=== PATIENT | male | born 1945 | race Caucasian/White ===

== ENCOUNTER 2016-12-07 02:28 | Inpatient (IN) | payer MEDICARE ==
[~2016-12-07] VITALS: Ht 180.3 cm; Wt 97.5 kg
[2016-12-07] VITALS (12 sets, daily range): BP systolic 104–192; BP diastolic 58–91; PULSE 77–105; RESP 16–22; TEMP 97.3–98.9; O2SAT 93–99
[~2016-12-07 02:28] MED LIST: ASPI81TA45 PO; CEPH500C3 PO; CYAN1000P IM; DOCU50SY2 PO; ENOX100P SQ; HYDR-3533 PO; KONS520C PO; LOSA50TA PO; MACR100C PO; OMEP20TA PO; SINE10100 PO; TAMS0.4C67 PO; TOPR50TA PO; VITA500C PO; WARF-20 PO; WARF-60 PO; ZOCO40TA PO
--- NOTE | 2016-12-07 02:38 | PD ---
HPI Chief Complaint: Fall Time Seen by Provider: 02:35 Travel History International Travel<30 days: No Contact w/Intl Traveler<30days: No Traveled to known affect area: No History of Present Illness HPI 70-year-old male presents to the ER today, had tripped and fell on his way to the bathroom, fell onto the right hip and has significant pain in the right hip with obvious deformity and shortening of the right limb. He denies any head injury or loss of consciousness or any other injuries. Modifying Factors: None Associated Signs & Symptoms: Right hip injury, fall Risk Factors: None PFSH Past Medical History Hx Anticoagulant Therapy: Yes (WARFAIN) Arthritis: No Asthma: Yes Autoimmune Disease: No Blood Disorders: No Anxiety: No Depression: No Heart Rhythm Problems: Yes (PERM. PACEMAKER FOR :"SINUS TACYACARDIA") Cancer: Yes (CLL) Cardiac Catheterization: Yes Cardiovascular Problems: Yes High Cholesterol: Yes Chemotherapy: Yes (02/2016) Chest Pain: No Congestive Heart Failure: No COPD: Yes Cerebrovascular Accident: Yes Diabetes: No Diminished Hearing: Yes (L EAR HEARING DIMINISHED) Endocrine: No Gastrointestinal Disorders: Yes GERD: Yes Glaucoma: No Genitourinary: Yes (KIDNEY STONES) Headaches: No Hepatitis: No Hiatal Hernia: Yes (ESOPH. STRICTURE) Hypertension: Yes Immune Disorder: No Implanted Vascular Access Dvce: Yes Kidney Stones: Yes Musculoskeletal: Yes (kyphosis) Neurologic: No Psychiatric: Yes Reproductive: No Respiratory: Yes (chronic bronchitits) Immunizations Current: Yes Migraines: Yes Myocardial Infarction: No Radiation Therapy: No Renal Failure: No Seizures: No Sickle Cell Disease: No Sleep Apnea: No Thyroid Disease: Yes (CURRENT MASS) Ulcer: No Past Surgical History Abdominal Surgery: Yes (HERNIA REPAIR) AICD: No Appendectomy: No Arteriovenous Shunt: No Cardiac Surgery: Yes (AVR X2, MYOECTOMY, PACEMAKER ([facility])) Cholecystectomy: No Coronary Artery Bypass Graft: Yes (AVR 2005 & 2009) Ear Surgery: No Endocrine Surgery: No Eye Surgery: Yes (LASER SURGERY BILAT. EYES FOR TORN RETINAS 1997 AND 2004) Genitourinary Surgery: Yes (MULTI. ESWL'S, LITHOTRIPSY, RENAL ABLATION) Gynecologic Surgery: No Insulin Pump: No Joint Replacement: No Oral Surgery: No Pacemaker: Yes (1998) Thoracic Surgery: No Other Surgery: Yes (PERM. PACEMAKER 1998) Social History Alcohol Use: Yes (RARE WINE) Tobacco Use: No (NEVER SMOKED) Substance Use: No Allergies-Medications (Allergen,Severity, Reaction): Coded Allergies: Hctz (Verified Allergy, Severe, RASH, THROAT CLOSES UP, 12/07/16) Sulfa (Verified Allergy, Intermediate, rash, 12/07/16) Valium (Verified Allergy, Intermediate, BECOMES VERY HYPER, 12/07/16) Allopurinol (Verified Allergy, Mild, Rash, 12/07/16) MRI PRECAUTION (Verified Adverse Reaction, Severe, PACEMAKER, 12/07/16) Plavix (Verified Adverse Reaction, Mild, BRUISES, 12/07/16) Prinivil (Verified Adverse Reaction, Mild, COUGH, 12/07/16) Reported Meds & Prescriptions Reported Meds & Active Scripts Active Reported Sucralfate 1 Gm Tab 1 Gm PO TID PRN on empty stomach Sucralfate 1 Gm Tab 1 Mg PO TID on empty stomach Neupogen Inj (Filgrastim) 300 Mcg/Ml Vial 300 Mcg SQ WEEKLY Losartan (Losartan Potassium) 50 Mg Tab 50 Mg PO DAILY Warfarin 4 Mg Tab 4 Mg PO DAILY Vitamin C (Ascorbic Acid) 250 Mg Tab 500 Mg PO DAILY Vitamin B12 (Cyanocobalamin (Vitamin B-12)) 2,500 Mcg Tab.chew 3,000 Mcg SL DAILY Toprol XL (Metoprolol Succinate) 100 Mg Tab 100 Mg PO DAILY Tamsulosin (Tamsulosin HCl) 0.4 Mg Cap 0.4 Mg PO HS Sinemet (Carbidopa/Levodopa) 10-100 Mg Tab 0.5 Tab PO Q8HR Simvastatin 20 Mg Tab 20 Mg PO HS Proventil Hfa 6.7 GM Inh (Albuterol Sulfate) 90 Mcg/Act Aer 2 Puff INH Q4-6H PRN Procrit Inj (Epoetin Glynn) 2,000 Unit/Ml Inj 2,000 Units SQ 2XWEEK Pantoprazole (Pantoprazole Sodium) 40 Mg Tab 40 Mg PO DAILY Review of Systems Except as stated in HPI: all other systems reviewed are Neg Physical Exam Narrative GENERAL: Well-developed elderly white male patient currently in moderate distress. Awake and oriented 3. SKIN: Focused skin assessment warm/dry. HEAD: Atraumatic. Normocephalic. EYES: Pupils equal and round. No scleral icterus. No injection or drainage. ENT: No nasal bleeding or discharge. Mucous membranes pink and moist. NECK: Trachea midline. No JVD. CARDIOVASCULAR: Irregularly irregular. No murmur appreciated. RESPIRATORY: No accessory muscle use. Clear to auscultation. Breath sounds equal bilaterally. GASTROINTESTINAL: Abdomen soft, non-tender, nondistended. Hepatic and splenic margins not palpable. MUSCULOSKELETAL: No obvious deformities. No clubbing. No cyanosis. No edema. Pelvis: Stable, tender to palpation of the right hip which is tender palpation, held in slight flexion and early rotated. Neurovascularly intact. NEUROLOGICAL: Awake and alert. No obvious cranial nerve deficits. Motor grossly within normal limits. Normal speech. PSYCHIATRIC: Appropriate mood and affect; insight and judgment normal. Data Data Last Documented VS Vital Signs Date Time Temp Pulse Resp B/P Pulse Ox O2 Delivery O2 Flow Rate FiO2 12/07/16 02:48 22 94 Room Air 12/07/16 02:32 98.2 77 192/91 Orders Complete Blood Count With Diff (12/07/16 02:35) Comprehensive Metabolic Panel (12/07/16 02:35) Prothrombin Time / Inr (Pt) (12/07/16 02:35) Act Partial Throm Time (Ptt) (12/07/16 02:35) Urinalysis - C+S If Indicated (12/07/16 02:35) Chest, Single Ap (12/07/16 02:35) Femur (Ap & Lat/2vws) (12/07/16 02:35) Hip, Uni(Ap&Lat) W Ap Pelvis (12/07/16 02:35) Iv Access Insert/Monitor (12/07/16 02:35) Oximetry (12/07/16 02:35) Ecg Monitoring (12/07/16 02:35) Sodium Chloride 0.9% Flush (Ns Flush) (12/07/16 02:45) Admit Order (Ed Use Only) (12/07/16 04:21) Labs Laboratory Tests Test 12/07/16 02:40 White Blood Count 3.4 TH/MM3 Red Blood Count 3.45 MIL/MM3 Hemoglobin 11.8 GM/DL Hematocrit 34.8 % Mean Corpuscular Volume 100.7 FL Mean Corpuscular Hemoglobin 34.1 PG Mean Corpuscular Hemoglobin 33.8 % Concent Red Cell Distribution Width 16.2 % Platelet Count 79 TH/MM3 Mean Platelet Volume 9.8 FL Neutrophils (%) (Auto) 54.5 % Lymphocytes (%) (Auto) 26.7 % Monocytes (%) (Auto) 16.1 % Eosinophils (%) (Auto) 2.0 % Basophils (%) (Auto) 0.7 % Neutrophils # (Auto) 1.9 TH/MM3 Lymphocytes # (Auto) 0.9 TH/MM3 Monocytes # (Auto) 0.6 TH/MM3 Eosinophils # (Auto) 0.1 TH/MM3 Basophils # (Auto) 0.0 TH/MM3 CBC Comment DIFF FINAL Differential Comment Prothrombin Time 23.9 SEC Prothromb Time International 2.1 RATIO Ratio Activated Partial 27.3 SEC Thromboplast Time Sodium Level 145 MEQ/L Potassium Level 3.5 MEQ/L Chloride Level 112 MEQ/L Carbon Dioxide Level 27.0 MEQ/L Anion Gap 6 MEQ/L Blood Urea Nitrogen 16 MG/DL Creatinine 1.02 MG/DL Estimat Glomerular Filtration 72 ML/MIN Rate Random Glucose 98 MG/DL Calcium Level 8.1 MG/DL Total Bilirubin 1.1 MG/DL Aspartate Amino Transf 16 U/L (AST/SGOT) Alanine Aminotransferase 12 U/L (ALT/SGPT) Alkaline Phosphatase 81 U/L Total Protein 6.4 GM/DL Albumin 3.7 GM/DL MDM Medical Decision Making Medical Screen Exam Complete: Yes Emergency Medical Condition: Yes Medical Record Reviewed: Yes Interpretation(s) Laboratory Tests Test 12/07/16 02:40 White Blood Count 3.4 TH/MM3 (4.0-11.0) Red Blood Count 3.45 MIL/MM3 (4.50-5.90) Hemoglobin 11.8 GM/DL (13.0-17.0) Hematocrit 34.8 % (39.0-51.0) Mean Corpuscular Volume 100.7 FL (80.0-100.0) Mean Corpuscular Hemoglobin 34.1 PG (27.0-34.0) Platelet Count 79 TH/MM3 (150-450) Monocytes (%) (Auto) 16.1 % (0.0-8.0) Lymphocytes # (Auto) 0.9 TH/MM3 (1.0-4.8) Prothrombin Time 23.9 SEC (9.8-11.6) Chloride Level 112 MEQ/L (98-107) Estimat Glomerular Filtration 72 ML/MIN (>89) Rate Calcium Level 8.1 MG/DL (8.5-10.1) Total Bilirubin 1.1 MG/DL (0.2-1.0) Differential Diagnosis Fall, right hip injuryrule out fracture versus dislocation Narrative Course X-rays reveal a right nondisplaced intertrochanteric fracture. At this point, patient is discussed with [facility] MARY Osborne for admission and orthopedics is consult on the case. We made several attempts to call Dr. Dunn of orthopedics for consult on this case but was unsuccessful. Consult was placed for the morning. Diagnosis Primary Impression: Fracture, intertrochanteric, right femur Admitting Information Admitting Physician Requests: Admit Karely Awad MD Dec 07, 2016 02:38
[2016-12-07] MEDS ORDERED: SODIUM CHLORIDE 0.9% FLUSH 10 ML FLUSH IVF PRN (02:45)
[2016-12-07 02:49] LABS: AUTOMATED NEUTROPHIL # 1.9 TH/MM3 (1.8-7.7); BASOPHIL % 0.7 % (0.0-2.0); EOSINOPHIL # 0.1 TH/MM3 (0-0.4); HEMATOCRIT 34.8 % (39.0-51.0); LYMPH % 26.7 % (9.0-44.0); LYMPHOCYTE # 0.9 TH/MM3 (1.0-4.8); MEAN CELL VOLUME 100.7 FL (80.0-100.0); MEAN CORPUSCULAR HEMOGLOBIN 34.1 PG (27.0-34.0); MEAN CORPUSCULAR HGB CONC 33.8 % (32.0-36.0); MONO % 16.1 % (0.0-8.0); NEUT % 54.5 % (16.0-70.0); PLATELET COUNT 79 TH/MM3 (150-450); RED BLOOD COUNT 3.45 MIL/MM3 (4.50-5.90); RED CELL DISTRIBUTION WIDTH 16.2 % (11.6-17.2); WHITE BLOOD COUNT 3.4 TH/MM3 (4.0-11.0)
[2016-12-07 02:54] LABS: HEMO FLAGS DIFF FINAL
[2016-12-07] MEDS ORDERED: [UNRECOGNIZED DRUG - CODE] SQ (02:59)
[2016-12-07] MEDS ORDERED: SIMV20TA PO (02:59)
[2016-12-07] MEDS ORDERED: PANT40TA3 PO (02:59)
[2016-12-07] MEDS ORDERED: TAMS0.4C4 PO (02:59)
[2016-12-07] MEDS ORDERED: SINE10100 PO (02:59)
[2016-12-07] MEDS ORDERED: ALBU6.7H INH (02:59)
[2016-12-07] MEDS ORDERED: WARF-20 PO (03:00)
[2016-12-07] MEDS ORDERED: SUCR1TAB PO ×2 (03:00)
[2016-12-07] MEDS ORDERED: TOPR100T PO (03:00)
[2016-12-07] MEDS ORDERED: LOSA50TA PO (03:00)
[2016-12-07] MEDS ORDERED: VITA250T3 PO (03:00)
[2016-12-07] MEDS ORDERED: CYAN25005 SL (03:00)
[2016-12-07] MEDS ORDERED: [UNRECOGNIZED DRUG - CODE] SQ (03:00)
[2016-12-07 03:03] LABS: APTT (PATIENT) 27.3 SEC (24.3-30.1); INTERNATIONAL NORMALIZED RATIO 2.1 RATIO; PROTHROMBIN TIME - PATIENT 23.9 SEC (9.8-11.6)
[2016-12-07 03:14] LABS: ALT (GPT) 12 U/L (12-78); ANION GAP 6 MEQ/L (5-15); AST (GOT) 16 U/L (15-37); BLOOD UREA NITROGEN 16 MG/DL (7-18); CHLORIDE 112 MEQ/L (98-107); GLOMERULAR FILTRATION RATE 72 ML/MIN (>89); POTASSIUM 3.5 MEQ/L (3.5-5.1); SODIUM (NA) 145 MEQ/L (136-145)
[2016-12-07 03:17] LABS: ALKALINE PHOSPHATASE 81 U/L (45-117); TOTAL BILIRUBIN ADULT 1.1 MG/DL (0.2-1.0)
--- NOTE | 2016-12-07 03:20 | RADRPT ---
EXAM DATE/TIME: 12/07/2016 02:52 [facility] COMPARISON: No previous studies available for comparison. INDICATIONS : Chest pain post fall. MEDICAL HISTORY : None. SURGICAL HISTORY : Pacemaker. ENCOUNTER: Initial ACUITY: 1 day PAIN SCORE: 2/10 LOCATION: Bilateral chest FINDINGS: A single view of the chest demonstrates the lungs to be symmetrically aerated without evidence of mas s, infiltrate or effusion. The cardiomediastinal contours are unremarkable. Osseous structures are intact. Left subclavian pacemaker and multiple sternal wires are stable CONCLUSION: Normal examination. Edy Cano MD on December 07, 2016 at 3:18 Board Certified Radiologist. This report was verified electronically.
--- NOTE | 2016-12-07 03:21 | RADRPT ---
EXAM DATE/TIME: 12/07/2016 02:53 [facility] COMPARISON: No previous studies available for comparison. INDICATIONS : Right proximal femur pain post fall. MEDICAL HISTORY : None. SURGICAL HISTORY : Pacemaker. ENCOUNTER: Initial ACUITY: 1 day PAIN SCORE: 7/10 LOCATION: Right proximal femur FINDINGS: Two view examination of the right femur demonstrates no evidence of dislocation. Oblique nondisplaced intertrochanteric fracture Bony mineralization is normal. The soft tissue structures are intact. CONCLUSION: Low intertrochanteric fracture on the right. Edy Cano MD on December 07, 2016 at 3:19 Board Certified Radiologist. This report was verified electronically.
--- NOTE | 2016-12-07 03:22 | RADRPT ---
EXAM DATE/TIME: 12/07/2016 02:53 [facility] COMPARISON: No previous studies available for comparison. INDICATIONS : Right hip pain post fall. MEDICAL HISTORY : None. SURGICAL HISTORY : Pacemaker. ENCOUNTER: Initial ACUITY: 1 day PAIN SCORE: 7/10 LOCATION: Right pelvis FINDINGS: Examination of the right hip was performed with AP Pelvis. There is a nondisplaced oblique fracture t hrough the greater intertrochanteric region. The hip joint is of normal width without significant sc lerosis or bony hypertrophy. The acetabulum is grossly intact. CONCLUSION: Oblique nondisplaced fracture of the trochanter region of the right hip. Edy Cano MD on December 07, 2016 at 3:20 Board Certified Radiologist. This report was verified electronically.
[2016-12-07] MEDS: SODIUM CHLOR 0.9% 1000 ML INJ 1,000 ML IV SCH ×2 (04:27→05:21)
[2016-12-07] MEDS ORDERED: SENNOSIDES 8.6 MG TAB PO PRN ×2 (04:30→13:45)
[2016-12-07] MEDS ORDERED: SODIUM CHLORIDE 0.9% FLUSH 10 ML FLUSH IV FLUSH PRN ×2 (04:30→13:45)
[2016-12-07] MEDS ORDERED: ONDANSETRON HCL 4 MG/2 ML VIAL IVP PRN ×2 (04:30→13:45)
[2016-12-07] MEDS ORDERED: ACETAMINOPHEN 325 MG TAB PO PRN ×2 (04:30)
[2016-12-07] MEDS ORDERED: NALOXONE HCL 0.4 MG/ML AMP IV PRN (04:30)
[2016-12-07] MEDS: MORPHINE SULFATE 4 MG/ML INJ IV PRN ×4 (05:29→20:20)
[2016-12-07] MEDS: DOCUSATE SODIUM 50 MG/SENNA 8.6 MG TAB PO SCH ×2 (08:32→20:21)
[2016-12-07] MEDS: SODIUM CHLORIDE 0.9% FLUSH 10 ML FLUSH IV FLUSH SCH ×2 (08:32→20:21)
[2016-12-07] MEDS ORDERED: DEXT 5%-NACL 0.9% 1000 ML INJ 1,000 ML IV SCH ×2 (09:15→13:00)
--- NOTE | 2016-12-07 09:41 | MH ---
cc: JENNY FARRIS MD DATE OF ADMISSION: 12/07/2016 DATE OF : 1945 CHIEF COMPLAINT: Fall. Travel in the last 30 days, none. HISTORY OF PRESENT ILLNESS: This is a pleasant 70 year-old white male who got up to go to the bathroom last night approximately 1:30 a.m., misjudged where his bed was when attempting to get back into the bed and fell hitting his right hip. He states he heard the crack and had extreme pain immediately. The patient lives with his son who he called out to and was brought to the emergency room for further evaluation. He denies hitting his head. He denies any headache. Denies any chest pain. No shortness of breath. He does have a significant history of cardiovascular disease and cardiomyopathy, and currently has a pacemaker. PAST MEDICAL HISTORY: 1. Coumadin therapy. 2. Chronic bronchitis. 3. Asthma. 4. Cancer (CLL). Chemotherapy has been done x1. 5. Multiple cardiac catheterizations. 6. Hyperlipidemia. 7. COPD. 8. History of CVA. 9. Loss of hearing in the left ear. 10. GERD. 11. Kidney stones 12. Esophageal stricture. 13. Hypertension. 14. Kyphosis. 15. Chronic bronchitis. 16. History of migraines. 17. Current thyroid mass. 18. Cardiomyopathy 19. Renal cancer diagnosed in 2014. PAST SURGICAL HISTORY: 1. Hiatal hernia. 2. Aortic valve replacement x2. 3. Pacemaker at [facility]. 4. Myomectomy. 5. Bypass 2005 and 2009. 6. Laser surgery on his eyes. 7. Torn retina. 8. Lithotripsy. 9. Renal ablation. 10. Multiple ESWL. 11. Pacemaker in 1998. 12. Chemotherapy after CLL diagnosis. ALLERGIES: ALLOPURINOL HYDROCHLOROTHIAZIDE MRI PRECAUTIONS PLAVIX PRINIVIL SULFA VALIUM REPORTED MEDICATIONS: 1. Carafate. 2. Filgrastim. 3. Losartan. 4. Coumadin 5. Vitamin C. 6. Vitamin B12. 7. Sinemet. 8. Simvastatin 9. Proventil 10. Procrit 11. Pantoprazole. SOCIAL HISTORY: Very rare wine consumption. No tobacco. No illicit drug use. He is and currently lives with his son and his family. REVIEW OF SYSTEMS: A 14 point review was obtained, positives noted in the HPI which are chiefly around his falls and his right hip fracture. Other systems negative or unremarkable. PHYSICAL EXAMINATION: VITAL SIGNS: Temperature is 98.2, pulse labile between 77 and 97. Respiratory rate labile between 16 and 21, currently 18. Blood pressure 173/83. O2 sat 99% currently on room air. GENERAL: Well-nourished white male, looks to be younger than stated age resting in bed. He is alert, oriented, good historian. SKIN: [place], warm and dry. HEENT: Atraumatic, normocephalic. PERRLA. Mucous membranes are pink and moist. No scleral icterus. NECK: Supple. CARDIOVASCULAR: S1-S2. Systolic murmur. Grade 4/6 at the left sternal border. No edema. Pulses intact. PULMONARY: Essentially clear anteriorly and posteriorly with no rales, rhonchi or wheezing. ABDOMEN: Flat, soft, non-tender, non-distended. Active bowel sounds. MUSCULOSKELETAL: He can move his extremities with purpose but there is some guarding to the right leg and right hip secondary to his recent fracture. 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 NEUROLOGIC: Speech is clear. No obvious cranial nerve deficits. PSYCHIATRIC: Mood and affect are appropriate. DIAGNOSTIC DATA WBC count 3.4, RBC 3.45, hemoglobin 11.8, hematocrit 34.8, platelet count 79. Monocyte percentage auto 16.1. All other dif is normal. PT/INR 2.1. Chemistry: Sodium 145, potassium 3.5, chloride 112, carbon dioxide 27, BUN 16, creatinine 1.02, GFR 72. Random glucose is 98, calcium is 8.1, bilirubin 1.1. IMAGING STUDIES: Chest x-ray, normal exam. Femur x-ray, low intertrochanteric fracture right side. Hip/pelvis x-ray, oblique nondisplaced fracture of the trochanter region of the right hip. ASSESSMENT AND PLAN: 1. Oblique nondisplaced fracture of the trochanter region of the right hip. 2. Thrombocytopenia. 3. History of coronary artery disease. 4. History of TIAs. 5. History of aortic valve replacement. 6. Anemia. 7. Leukopenia with history of cardiovascular disease. 8. Coumadin therapy. 9. History of CLL. Our plan is to maintain n.p.o. The patient has an ortho consult that is pending. Will follow the plan of care based on the course of action with this hospital stay. Vital signs: Q4 and is warranted. Will monitor his labs. He is admitted inpatient status. Currently he is on bed rest. Medications have been reconciled. Will keep him on IV fluids for hydration, D5 NS. Monitor for any signs of shortness of breath or change in his pulmonary status. The patient is seen to be leukopenic but does have a history of CLL with chemotherapy that has been done in 2015. Will monitor his CBC, and note any acute changes. Will place him on telemetry. The patient has had sinus rhythm with some possible atrial fibrillation in the past. Will hold on any vitamin K until seen by ortho. I discussed in detail patient's wishes for his code status. He does have a living will but has not discussed with his family any of his wishes. He states that he does not think he wants to be intubated if anything acute happens to him, but I requested that he speak to his family and think about his wishes before we make any quick decisions. The patient agreed with that plan. If anything changes, he will let us know. Dictated by: AMY Owen MD MACKENZIE Mohr/ZAINAB /8:52 AM /9:06 AM
[2016-12-07] MEDS ORDERED: PERC5TAB12 PO (13:34)
[2016-12-07] MEDS ORDERED: PROMETHAZINE HCL 25 MG TAB PO PRN (13:45)
[2016-12-07] MEDS ORDERED: ENOXAPARIN SODIUM 30 MG/0.3 ML SYRINGE SQ SCH (13:45)
[2016-12-07] MEDS ORDERED: BISACODYL 10 MG SUPP RECTAL PRN (13:45)
[2016-12-07] MEDS ORDERED: oxyCODONE/ACETAMINOPHEN 5 MG/325 MG TAB PO PRN ×2 (13:45)
[2016-12-07] MEDS ORDERED: LACTULOSE SYRUP 20 GM/30 ML CUP PO PRN (13:45)
[2016-12-07] MEDS ORDERED: ZOLPIDEM TARTRATE 5 MG TAB PO PRN (13:45)
[2016-12-07] MEDS ORDERED: MAGNESIUM HYDROXIDE SUSP 30 ML CUP PO PRN (13:45)
[2016-12-07] MEDS ORDERED: Post-op Orders (for Pharmacy) MISC XX ONE (13:45)
[2016-12-07] MEDS ORDERED: KETOROLAC TROMETHAMINE 30 MG/ML (IVP) VIAL IVP SCH (14:00)
--- NOTE | 2016-12-07 14:43 | HHI.PR ---
Objective Objective Results - Vital Signs Date Time Temp Pulse Resp B/P Pulse Ox O2 Delivery O2 Flow Rate FiO2 12/07/16 12:00 98.0 91 18 115/67 95 12/07/16 08:00 98.9 105 18 142/75 94 12/07/16 05:34 18 12/07/16 05:10 98.3 97 20 173/83 99 12/07/16 04:42 95 16 171/81 98 12/07/16 02:48 22 94 Room Air 12/07/16 02:48 Room Air 12/07/16 02:32 98.2 77 21 192/91 94 I/O 12/06/16 12/06/16 12/06/16 12/07/16 12/07/16 12/07/16 06:59 14:59 22:59 06:59 14:59 22:59 Intake Total 0 ml 582 ml Output Total 300 ml Balance -300 ml 582 ml Intake Oral 0 ml IV Total 582 ml Output Urine Total 300 ml Result Diagram: 12/07/16 0240 12/07/16 0240 Other Results Laboratory Tests Test 12/07/16 02:40 White Blood Count 3.4 Red Blood Count 3.45 Hemoglobin 11.8 Hematocrit 34.8 Mean Corpuscular Volume 100.7 Mean Corpuscular Hemoglobin 34.1 Mean Corpuscular Hemoglobin 33.8 Concent Red Cell Distribution Width 16.2 Platelet Count 79 Mean Platelet Volume 9.8 Neutrophils (%) (Auto) 54.5 Lymphocytes (%) (Auto) 26.7 Monocytes (%) (Auto) 16.1 Eosinophils (%) (Auto) 2.0 Basophils (%) (Auto) 0.7 Neutrophils # (Auto) 1.9 Lymphocytes # (Auto) 0.9 Monocytes # (Auto) 0.6 Eosinophils # (Auto) 0.1 Basophils # (Auto) 0.0 CBC Comment DIFF FINAL Differential Comment Prothrombin Time 23.9 Prothromb Time International 2.1 Ratio Activated Partial 27.3 Thromboplast Time Sodium Level 145 Potassium Level 3.5 Chloride Level 112 Carbon Dioxide Level 27.0 Anion Gap 6 Blood Urea Nitrogen 16 Creatinine 1.02 Estimat Glomerular Filtration 72 Rate Random Glucose 98 Calcium Level 8.1 Total Bilirubin 1.1 Aspartate Amino Transf 16 (AST/SGOT) Alanine Aminotransferase 12 (ALT/SGPT) Alkaline Phosphatase 81 Total Protein 6.4 Albumin 3.7 Physical Exam Physical Exam PHYSICAL EXAMINATION GENERAL: This is a well-developed, well-nourished male who appears to be in no acute distress. He is alert and awake, []. HEAD: Normocephalic without any lesion or mass noted. Facial features appear symmetric. EYES: [place], Normal eye movement, [] Icterus. [] Conj congestion. OROPHARYNGEAL: Oropharynx without erythema or edema. MOUTH/THROAT: Tongue midline []. Buccal mucosa is moist []. NECK: Supple. No nuchal rigidity or lymphadenopathy. Trachea midline without deviation. Thyroid not palpable, no bruits appreciated. CARDIAC: Regular rhythm, regular rate, S1 and S2 are heard. Murmur []; no gallops or rubs. LUNGS: Clear to auscultation bilaterally. [] wheeze, [] rhonchi or [] rale. No use of accessory muscles on inspiration or expiration. ABDOMEN: Soft, nontender, no organomegaly or masses. Bowel sounds are heard in all four quadrants. No rebound. No guarding. EXTREMITIES: [] edema. Pulses equal bilateral. [] cyanosis. NEUROLOGICAL: Patient mood and affect appropriate. Cranial nerves II through XII grossly intact. Muscle strength 5/5 in the upper and lower extremities bilaterally. Deep tendon reflexes are 2+ in the upper and lower extremities bilaterally. SKIN:Warm and moist PSYCH: Mood and affect appropriate A/P Assessment and Plan patient seen and examined Please refer to admission h & P for details awaiting ortho input start diet NPO after midnight pain control hold coumadin on lovenox labs in am discussed with patient no family at bedside discussed with Criselda Garnica MD Dec 07, 2016 14:43
--- NOTE | 2016-12-07 14:46 | EKG ---
Date Performed: 12/07/2016 Time Performed: 02:33:40 PTAGE: 70 years EKG: ELECTRONIC VENTRICULAR PACEMAKER Compared to prior tracing no significant change ABNORMAL R HYTHM ECG PREVIOUS TRACING : 08/03/2014 03.44 DOCTOR: Paras Thomas Interpretating Date/Time 12/07/2016 14:44:14
[2016-12-07] MEDS ORDERED: SODIUM CHLORID 0.9% 500 ML IV PRN (16:15)
[2016-12-07] MEDS ORDERED: METOPROLOL TARTRATE 25 MG TAB PO PRN (16:15)
[2016-12-07] MEDS ORDERED: POVIDONE IODINE 5% (ANTISEPSIS KIT) 4 APPLICATIONS EACH NARE PRN (16:15)
[2016-12-07] MEDS ORDERED: INSULIN HUMAN REGULAR 1,000 UNITS/10 ML VIAL SQ PRN (16:15)
[2016-12-07] MEDS ORDERED: CHLORHEXIDINE GLUCONATE 2 % 1 PACK (2 CLOTHS) TOPICAL PRN (16:15)
[2016-12-07] MEDS ORDERED: LACTATED RINGER'S 1000 ML IV PRN (16:15)
[2016-12-07] MEDS ORDERED: ceFAZolin INJ 1,000 MG VIAL ONE (16:31)
[2016-12-07] MEDS ORDERED: GENTAMICIN SULFATE 80 MG/2 ML VIAL ONE (16:31)
--- NOTE | 2016-12-07 17:29 | PD.CONS ---
cc: Mark Olmos Jr., MD [facility] Service Orthopedic Surgeons Consult Requested By Primary Care Physician Karlos Rahman, DO Admission Diagnosis right hip fracture Diagnoses: Chief Complaint: Right hip fracture History of Present Illness 70-year-old male with a history of atrial fibrillation was going to the bathroom in the middle night when he sustained a fall and reported significant right hip pain and inability to bear weight. X-ray taken the emergency department reveal displaced right IT fem fracture. Denies any head injuries. Denies loss of consciousness. Currently patient's pain is sharp, 4 out of 10, exacerbated by any range of motion, relieved at rest and with IV pain medicine, pain is sharp nonradiating, not associated with any paresthesia and numbness to the right lower extremity. He denies any headache. Denies any chest pain. No shortness of breath. He does have a significant history of cardiovascular disease and cardiomyopathy, and currently has a pacemaker. PAST MEDICAL HISTORY: 1. Coumadin therapy. 2. Chronic bronchitis. 3. Asthma. 4. Cancer (CLL). Chemotherapy has been done x1. 5. Multiple cardiac catheterizations. 6. Hyperlipidemia. 7. COPD. 8. History of CVA. 9. Loss of hearing in the left ear. 10. GERD. 11. Kidney stones 12. Esophageal stricture. 13. Hypertension. 14. Kyphosis. 15. Chronic bronchitis. 16. History of migraines. 17. Current thyroid mass. 18. Cardiomyopathy 19. Renal cancer diagnosed in 2014. PAST SURGICAL HISTORY: 1. Hiatal hernia. 2. Aortic valve replacement x2. 3. Pacemaker at [facility]. 4. Myomectomy. 5. Bypass 2005 and 2009. 6. Laser surgery on his eyes. 7. Torn retina. 8. Lithotripsy. 9. Renal ablation. 10. Multiple ESWL. 11. Pacemaker in 1998. 12. Chemotherapy after CLL diagnosis. ALLERGIES: ALLOPURINOL HYDROCHLOROTHIAZIDE MRI PRECAUTIONS PLAVIX PRINIVIL SULFA VALIUM REPORTED MEDICATIONS: 1. Carafate. 2. Filgrastim. 3. Losartan. 4. Coumadin 5. Vitamin C. 6. Vitamin B12. 7. Sinemet. 8. Simvastatin 9. Proventil 10. Procrit 11. Pantoprazole. SOCIAL HISTORY: Very rare wine consumption. No tobacco. No illicit drug use. He is and currently lives with his son and his family. REVIEW OF SYSTEMS: A 14 point review was obtained, positives noted in the HPI which are chiefly around his falls and his right hip fracture Past Family Social History Allergies: Coded Allergies: Hctz (Verified Allergy, Severe, RASH, THROAT CLOSES UP, 12/07/16) Sulfa (Verified Allergy, Intermediate, rash, 12/07/16) Valium (Verified Allergy, Intermediate, BECOMES VERY HYPER, 12/07/16) Allopurinol (Verified Allergy, Mild, Rash, 12/07/16) MRI PRECAUTION (Verified Adverse Reaction, Severe, PACEMAKER, 12/07/16) Plavix (Verified Adverse Reaction, Mild, BRUISES, 12/07/16) Prinivil (Verified Adverse Reaction, Mild, COUGH, 12/07/16) Active Ordered Medications Current Medications Medications (Trade) Dose Ordered Sig/Evert Route Start Time Stop Time Status Last Admin (NS Flush) 2 ml UNSCH PRN IV FLUSH 12/07/16 04:30 (NS Flush) 2 ml BID IV FLUSH 12/07/16 09:00 (Tylenol) 650 mg Q4H PRN PO 12/07/16 04:30 (Zofran Inj) 4 mg Q6H PRN IVP 12/07/16 04:30 12/07/16 04:58 (Tylenol) 650 mg Q6H PRN PO 12/07/16 04:30 (Morphine Inj) 2 mg Q3H PRN IV 12/07/16 04:30 12/07/16 11:42 (Morphine Inj) 4 mg Q3H PRN IV 12/07/16 04:30 (Narcan Inj) 0.4 mg UNSCH PRN IV 12/07/16 04:30 (Naya-Colace) 1 tab BID PO 12/07/16 09:00 (Milk Of Magnesia Liq) 30 ml Q12H PRN PO 12/07/16 04:30 Sennosides 17.2 mg 17.2 mg Q12H PRN PO 12/07/16 04:30 Dextrose/Sodium Chloride 1,000 ml @ 42 mls/hr [id number] IV 12/07/16 13:00 12/07/16 13:00 Lactated Ringer's 1,000 ml @ 30 mls/hr Q24H PRN IV 12/07/16 16:15 12/10/16 16:14 (NS 500 ml Inj) 500 ml @ 30 mls/hr [id number] PRN IV 12/07/16 16:15 12/10/16 16:14 Reported Meds & Active Scripts Active Percocet (Oxycodone-Acetaminophen) 5-325 mg Tab 1 Tab PO Q4H PRN Reported Sucralfate 1 Gm Tab 1 Gm PO TID PRN on empty stomach Sucralfate 1 Gm Tab 1 Mg PO TID on empty stomach Neupogen Inj (Filgrastim) 300 Mcg/Ml Vial 300 Mcg SQ WEEKLY Losartan (Losartan Potassium) 50 Mg Tab 50 Mg PO DAILY Warfarin 4 Mg Tab 4 Mg PO DAILY Vitamin C (Ascorbic Acid) 250 Mg Tab 500 Mg PO DAILY Vitamin B12 (Cyanocobalamin (Vitamin B-12)) 2,500 Mcg Tab.chew 3,000 Mcg SL DAILY Toprol XL (Metoprolol Succinate) 100 Mg Tab 100 Mg PO DAILY Tamsulosin (Tamsulosin HCl) 0.4 Mg Cap 0.4 Mg PO HS Sinemet (Carbidopa/Levodopa) 10-100 Mg Tab 0.5 Tab PO Q8HR Simvastatin 20 Mg Tab 20 Mg PO HS Proventil Hfa 6.7 GM Inh (Albuterol Sulfate) 90 Mcg/Act Aer 2 Puff INH Q4-6H PRN Procrit Inj (Epoetin Glynn) 2,000 Unit/Ml Inj 2,000 Units SQ 2XWEEK Pantoprazole (Pantoprazole Sodium) 40 Mg Tab 40 Mg PO DAILY Physical Exam Vital Signs Vital Signs Date Time Temp Pulse Resp B/P Pulse Ox O2 Delivery O2 Flow Rate FiO2 12/07/16 12:00 98.0 91 18 115/67 95 12/07/16 08:00 98.9 105 18 142/75 94 12/07/16 05:34 18 12/07/16 05:10 98.3 97 20 173/83 99 12/07/16 04:42 95 16 171/81 98 12/07/16 02:48 22 94 Room Air 12/07/16 02:48 Room Air 12/07/16 02:32 98.2 77 21 192/91 94 Physical Exam Alert awake and oriented x 3. No acute distress. Head: NC/AT Neck: No pain with any range of motion and neck. Trachea is midline. No tenderness to palpation along posterior cervical elements. Pulmonary: Normal respiratory effort. Bilateral upper extremity: No deformities Intact sensation distally in median, ulnar, and radial nerve. Intact motor in anterior interosseous, posterior interosseous, and ulnar nerve. 2+ radial artery pulses. Good cap refill. RIGHT lower extremity: Shortened and externally rotated. Positive log roll. Tender to palpation around the greater trochanter. othersie grossly Neurovascularly intact, +EHL/FHL. + PT/DP pulses. Supple compartments. Negative Homans sign. LEFT lower extremity: No deformity, grossly Neurovascularly intact, +EHL/FHL. + PT/DP pulses. Supple compartments. Negative Homans sign. Laboratory Laboratory Tests Test 12/07/16 12/07/16 02:40 15:07 White Blood Count 3.4 Red Blood Count 3.45 Hemoglobin 11.8 Hematocrit 34.8 Mean Corpuscular Volume 100.7 Mean Corpuscular Hemoglobin 34.1 Mean Corpuscular Hemoglobin 33.8 Concent Red Cell Distribution Width 16.2 Platelet Count 79 Mean Platelet Volume 9.8 Neutrophils (%) (Auto) 54.5 Lymphocytes (%) (Auto) 26.7 Monocytes (%) (Auto) 16.1 Eosinophils (%) (Auto) 2.0 Basophils (%) (Auto) 0.7 Neutrophils # (Auto) 1.9 Lymphocytes # (Auto) 0.9 Monocytes # (Auto) 0.6 Eosinophils # (Auto) 0.1 Basophils # (Auto) 0.0 CBC Comment DIFF FINAL Differential Comment Prothrombin Time 23.9 Prothromb Time International 2.1 Ratio Activated Partial 27.3 Thromboplast Time Sodium Level 145 Potassium Level 3.5 Chloride Level 112 Carbon Dioxide Level 27.0 Anion Gap 6 Blood Urea Nitrogen 16 Creatinine 1.02 Estimat Glomerular Filtration 72 Rate Random Glucose 98 Calcium Level 8.1 Total Bilirubin 1.1 Aspartate Amino Transf 16 (AST/SGOT) Alanine Aminotransferase 12 (ALT/SGPT) Alkaline Phosphatase 81 Total Protein 6.4 Albumin 3.7 Blood Bank Comment Result Diagram: 12/07/160 12/07/16 024 Imaging Last 72 hours Impressions Hip and Pelvis X-Ray 12/07/16234 Signed Impressions: Service Date/Time: Wednesday, December 07, 2016 02:53 - CONCLUSION: Oblique nondisplaced fracture of the trochanter region of the right hip. Edy Cano MD Femur X-Ray 12/07/165 Signed Impressions: Service Date/Time: Wednesday, December 07, 2016 02:53 - CONCLUSION: Low intertrochanteric fracture on the right. Edy Cano MD Chest X-Ray 12/07/16234 Signed Impressions: Service Date/Time: Wednesday, December 07, 2016 02:52 - CONCLUSION: Normal examination. Edy Cano MD Assessment & Plan Assessment and Plan 70-year-old male with a past medical history of leukemia, atrial fibrillation on Coumadin sustained a fall c/o subsequent right hip pain and inability to bear weight. X-rays examination in the emergency department revealed a right intertrochanteric femur fracture. This fracture is unstable and requires operative intervention with intramedullary ignacio fixation. I discussed my treatment plans with the patient, as well as risks, benefits and alternatives of surgical Intervention versus nonoperative treatment. In this case, the risks of operative intervention involves bleeding, infection, risks of damage to neurovascular structures, the risk of needing further surgery, posttraumatic arthritis and the risks involved with complication from anesthesia. We will proceed with the above procedure. The patient accepts these risks; understands and agrees with my recommendations. I also discussed my proposed postoperative care and follow-up plan. All questions were answered. Patient consented. Thanks for the consult, thanks for allowing me to participate in this patient's medical care. INR 2.1, plat 71k OR PENDING REVERSAL OF COUMADIN AND INR around 1.5 -2u FFP, hold coumadin Mark Olmos Jr., MD Dec 07, 2016 17:29
[2016-12-07] MEDS ORDERED: SODIUM CHLORIDE 0.9% FLUSH 10 ML FLUSH IV FLUSH SCH (21:00)
[2016-12-07] MEDS ORDERED: DOCUSATE SODIUM 50 MG/SENNA 8.6 MG TAB PO SCH (21:00)
[2016-12-08] VITALS (7 sets, daily range): BP systolic 112–160; BP diastolic 67–80; PULSE 73–101; RESP 16–20; TEMP 96.3–99.2; O2SAT 93–100
[2016-12-08] MEDS: MORPHINE SULFATE 4 MG/ML INJ IV PRN (01:12)
[2016-12-08 06:28] LABS: AUTOMATED NEUTROPHIL # 2.3 TH/MM3 (1.8-7.7); BASOPHIL % 0.3 % (0.0-2.0); EOSINOPHIL # 0.1 TH/MM3 (0-0.4); EOSINOPHIL % 1.6 % (0.0-4.0); HEMATOCRIT 27.7 % (39.0-51.0); LYMPH % 14.2 % (9.0-44.0); LYMPHOCYTE # 0.5 TH/MM3 (1.0-4.8); MEAN CELL VOLUME 101.8 FL (80.0-100.0); MEAN CORPUSCULAR HEMOGLOBIN 34.3 PG (27.0-34.0); MEAN CORPUSCULAR HGB CONC 33.7 % (32.0-36.0); MONO % 15.7 % (0.0-8.0); NEUT % 68.2 % (16.0-70.0); PLATELET COUNT 57 TH/MM3 (150-450); RED BLOOD COUNT 2.72 MIL/MM3 (4.50-5.90); RED CELL DISTRIBUTION WIDTH 16.4 % (11.6-17.2); WHITE BLOOD COUNT 3.4 TH/MM3 (4.0-11.0)
[2016-12-08 06:31] LABS: HEMO FLAGS AUTO DIFF
[2016-12-08 06:35] LABS: APTT (PATIENT) 34.9 SEC (24.3-30.1); INTERNATIONAL NORMALIZED RATIO 1.7 RATIO; PROTHROMBIN TIME - PATIENT 19.6 SEC (9.8-11.6)
[2016-12-08] MEDS ORDERED: GENTAMICIN SULFATE 80 MG/2 ML VIAL ONE (07:24)
[2016-12-08 07:51] LABS: PLATELET ESTIMATE SMEAR LOW (NORMAL); PLATELET MORPHOLOGY NORMAL (NORMAL); SCAN/DIFF AUTO DIFF CONFIRMED
[2016-12-08] MEDS ORDERED: FAMOTIDINE 20 MG/2 ML VIAL ONE (09:04)
[2016-12-08] MEDS ORDERED: HYDR-3288 PO (10:07)
[2016-12-08] MEDS ORDERED: MISCELLANEOUS PHARMACY INFORMATION XX ONE (10:15)
[2016-12-08] MEDS ORDERED: Post-op Orders (for Pharmacy) MISC XX ONE (10:15)
[2016-12-08] MEDS ORDERED: MISCELLANEOUS NURSING INFORMATION XX PRN (10:15)
[2016-12-08] MEDS ORDERED: diphenhydrAMINE HCL 25 MG CAP PO PRN (10:15)
[2016-12-08] MEDS ORDERED: ACETAMINOPHEN/HYDROcodone 325 MG/7.5 MG TAB PO PRN (10:15)
[2016-12-08] MEDS ORDERED: SODIUM CHLORIDE 0.9% FLUSH 5 ML FLUSH IVF PRN (10:15)
[2016-12-08] MEDS ORDERED: ONDANSETRON HCL 4 MG/2 ML VIAL IVP PRN (10:15)
[2016-12-08] MEDS ORDERED: MORPHINE SULFATE 4 MG/ML INJ IV PUSH PRN (10:15)
[2016-12-08] MEDS ORDERED: VANCOMYCIN HCL 1000 MG VIAL ONE (11:05)
[2016-12-08] MEDS ORDERED: SODIUM CHLOR 0.9% 250 ML INJ 250 ML ONE (11:05)
[2016-12-08] MEDS ORDERED: ceFAZolin 2 GM PREMIX 50 ML ONE (11:05)
[2016-12-08] MEDS ORDERED: ceFAZolin INJ 1,000 MG VIAL IV ONE (11:28)
[2016-12-08] MEDS ORDERED: DO NOT ADM ANY ANTICOAGULANT DRUGS PRN (12:37)
[2016-12-08] MEDS ORDERED: fentaNYL CITRATE 250 MCG/5 ML AMP ONE (12:48)
[2016-12-08] MEDS ORDERED: *morphine SULFATE 8 MG/ML PERIprocedure ONLY ONE (12:54)
[2016-12-08] MEDS: DEXT 5%-NACL 0.45% 1000 ML INJ 1,000 ML IV SCH (13:04)
--- NOTE | 2016-12-08 14:21 | HHI.PR ---
Subjective Subjective Remarks S/P right hip troch nail today having mild right hip pain c/o thirst no cp no sob pleasant, states he would prefer to go to rehab, [facility]. family at [facility] Review of Systems Constitutional Constitutional Remarks 12 point ros completed, negative except as noted above Vitals/Results Intake & Output 12/07/16 12/07/16 12/08/16 15:00 23:00 07:00 Intake Total 582 ml 240 ml 675 ml Output Total 1400 ml Balance 582 ml -1160 ml 675 ml Intake Oral 240 ml IV Total 582 ml FFP 675 ml Output Urine Total 1400 ml # Bowel Movements 0 Vital Signs Vital Signs Date Time Temp Pulse Resp B/P Pulse Ox O2 Delivery O2 Flow Rate FiO2 12/08/16 14:12 Nasal Cannula 2.00 12/08/16 13:30 98.3 102 14 158/81 94 Nasal Cannula 2 12/08/16 13:15 104 16 159/79 96 Nasal Cannula 2 12/08/16 13:00 99 15 164/78 95 Nasal Cannula 2 12/08/16 12:45 68 18 151/69 99 Nasal Cannula 2 12/08/16 12:41 98.2 58 20 165/73 100 Nasal Cannula 3 12/08/16 10:20 99.2 78 20 141/72 96 12/08/16 09:52 12/08/16 09:30 99.1 98 20 143/76 94 12/08/16 07:41 97.5 98 18 160/80 93 12/08/16 03:21 97.0 89 18 130/69 94 12/08/16 02:10 97.5 85 18 112/68 96 12/08/16 01:30 97.5 85 18 131/68 95 12/07/16 23:20 97.3 80 17 115/61 93 12/07/16 23:00 97.6 86 17 136/69 95 12/07/16 22:40 97.5 86 18 128/65 94 12/07/16 22:15 97.3 84 17 123/65 95 12/07/16 19:50 97.3 85 17 104/58 95 12/07/16 16:00 98.8 86 18 135/78 94 CBC/BMP: 12/08/16 0517 12/07/16 0240 Lab Results Laboratory Tests Test 12/07/16 12/08/16 12/08/16 12/08/16 15:07 05:14 05:17 05:40 Blood Bank Comment Prothrombin Time 19.6 SEC Prothromb Time International 1.7 RATIO Ratio Activated Partial 34.9 SEC Thromboplast Time White Blood Count 3.4 TH/MM3 Red Blood Count 2.72 MIL/MM3 Hemoglobin 9.3 GM/DL Hematocrit 27.7 % Mean Corpuscular Volume 101.8 FL Mean Corpuscular Hemoglobin 34.3 PG Mean Corpuscular Hemoglobin 33.7 % Concent Red Cell Distribution Width 16.4 % Platelet Count 57 TH/MM3 Mean Platelet Volume 9.5 FL Neutrophils (%) (Auto) 68.2 % Lymphocytes (%) (Auto) 14.2 % Monocytes (%) (Auto) 15.7 % Eosinophils (%) (Auto) 1.6 % Basophils (%) (Auto) 0.3 % Neutrophils # (Auto) 2.3 TH/MM3 Lymphocytes # (Auto) 0.5 TH/MM3 Monocytes # (Auto) 0.5 TH/MM3 Eosinophils # (Auto) 0.1 TH/MM3 Basophils # (Auto) 0.0 TH/MM3 CBC Comment AUTO DIFF Differential Comment AUTO DIFF CONFIRMED Platelet Estimate LOW Platelet Morphology Comment NORMAL Blood Type O POSITIVE Antibody Screen NEGATIVE Test 12/08/16 09:07 Blood Bank Comment Physical Exam General General Appearance: Well Developed, Well Nourished, No Acute Distress, Comfortable Eyes Eye Exam: Pupils Equal, Pupils Reactive Ears & Nose Ears & Nose Exam: Nasal Mucosa [place] Throat Throat Exam: Oral Mucosa [place] & Moist Neck Neck Exam: Neck Supple, Trachea Midline Pulmonary Resp Exam: Clear Bilaterally, No Distress Cardiology CV Exam: Good Perfusion, Arrhythmia, Pacemaker Gastrointestinal/Abdomen GI Exam: Soft, Non-Tender, Bowel Sounds Present, Non-Distended Musculoskeletal MS Exam: Joints Intact MS Remarks right hip dressing D/I Integumentary Skin Exam: Warm, Dry Extremeties Extremities Exam: No Edema, Pedal Pulses Palpable Neurologic Neuro Exam: Alert, Awake, Oriented, Speech Clear, Mushroom Farmer Equal, No Focal Deficits Psychiatric Psych Exam: Appropriate Responses VTE Prophylaxis VTE Prophylaxis Device: SCDs, TEDs VTE Prophylaxis Meds: Coumadin Assessment/Plan Problem List: (1) Fracture, intertrochanteric, right femur (2) S/P AVR (aortic valve replacement) (3) Pacemaker (4) CAD (coronary artery disease) (5) Thrombocytopenia (6) Anemia (7) Leukopenia (8) HOCM (hypertrophic obstructive cardiomyopathy) (9) Hx of myomectomy (10) Atrial fibrillation Assessment/Plan 70 year old male, s/p fall with findings of right intertrochanteric femur fracture S/P right hip troch nail 12/08 Continue with postoperative orthopedic care Continue with Coumadin, follow INR, 1.7 today Bowel regimen Pain management Physical therapy Case management for discharge planning, requesting [facility]. History of valve replacement, A. fib, pacemaker, on chronic anticoagulation, prior myomectomy Coumadin has been resumed Continue with home medications Hx CLL, pancytopenic HH stable continue to monitor CBC Plat 57 We will order cardiac telemetry Case management for discharge planning Continue with Coumadin for DVT prophylaxis Protonix and Carafate for GI prophylaxis CBC and BMP in the morning Discussed with RN Discussed with patient and family Discussed with CM Discussed with Dr. Banks This patient was seen by myself and Dr. Banks, this note is written on his behalf Problem Qualifiers (1) Fracture, intertrochanteric, right femur: (2) CAD (coronary artery disease): Qualified Code: I25.10 - Coronary artery disease involving samish coronary artery of samish heart without angina pectoris (3) Anemia: Qualified Code: D64.9 - Anemia, unspecified type (4) Leukopenia: Qualified Code: D72.819 - Leukopenia, unspecified type (5) Atrial fibrillation: Qualified Code: I48.2 - Chronic atrial fibrillation Anisha Ball Dec 08, 2016 14:21
--- NOTE | 2016-12-08 15:03 | RADRPT ---
EXAM DATE/TIME: 12/08/2016 12:16 [facility] COMPARISON: HIP RIGHT (AP&LAT 2/3VWS) W AP PELVIS, December 07, 2016, 2:53. INDICATIONS : ORIF right hip fracture. MEDICAL HISTORY : Unobtainable. SURGICAL HISTORY : Unobtainable. ENCOUNTER: Initial ACUITY: 2 days PAIN SCORE: Non-responsive. LOCATION: Right hip FINDINGS: Intramedullary ignacio is present traversing the proximal femur with screws traversing the femoral neck T here is gross anatomical alignment of the fracture fragments. CONCLUSION: Intact postsurgical changes. Ida Anguiano MD on December 08, 2016 at 15:01 Board Certified Radiologist. This report was verified electronically.
[2016-12-08] MEDS ORDERED: NEUP300I4 SQ (16:19)
[2016-12-08] MEDS ORDERED: [UNRECOGNIZED DRUG - CODE] SQ (16:21)
[2016-12-08] MEDS: SUCRALFATE 1 GM TAB PO SCH (16:24)
[2016-12-08] MEDS: ACETAMINOPHEN/HYDROcodone 325 MG/7.5 MG TAB PO PRN (16:25)
[2016-12-08] MEDS ORDERED: EPOETIN ALFA 2,000 UNITS/ML VIAL SQ SCH (17:00)
[2016-12-08] MEDS: SODIUM CHLORIDE 0.9% FLUSH 5 ML FLUSH IVF SCH (19:44)
[2016-12-08] MEDS: DOCUSATE SODIUM 50 MG/SENNA 8.6 MG TAB PO SCH (19:44)
[2016-12-08] MEDS: TAMSULOSIN HCL 0.4 MG CAP PO SCH (19:44)
[2016-12-08] MEDS: PRAVASTATIN SOD 40 MG TAB PO SCH (19:44)
[2016-12-08] MEDS ORDERED: MULTIVITAMINS/MINERALS THERAPEUTIC TAB PO SCH (21:00)
[2016-12-08] MEDS: CARBIDOPA/LEVODOPA 10 MG/100 MG TAB PO SCH (22:06)
[2016-12-09] VITALS (8 sets, daily range): BP systolic 110–156; BP diastolic 59–79; PULSE 74–105; RESP 16–18; TEMP 96.9–99.6; O2SAT 93–100
[2016-12-09] MEDS: ACETAMINOPHEN/HYDROcodone 325 MG/7.5 MG TAB PO PRN (01:25)
[2016-12-09] MEDS: DEXT 5%-NACL 0.45% 1000 ML INJ 1,000 ML IV SCH ×3 (06:04→20:05)
[2016-12-09] MEDS: CARBIDOPA/LEVODOPA 10 MG/100 MG TAB PO SCH ×3 (06:04→21:33)
[2016-12-09 07:58] LABS: INTERNATIONAL NORMALIZED RATIO 2.1 RATIO; PROTHROMBIN TIME - PATIENT 23.5 SEC (9.8-11.6)
[2016-12-09 08:03] LABS: HEMATOCRIT 25.6 % (39.0-51.0); MEAN CELL VOLUME 102.9 FL (80.0-100.0); MEAN CORPUSCULAR HEMOGLOBIN 34.1 PG (27.0-34.0); MEAN CORPUSCULAR HGB CONC 33.2 % (32.0-36.0); PLATELET COUNT 74 TH/MM3 (150-450); RED BLOOD COUNT 2.48 MIL/MM3 (4.50-5.90); RED CELL DISTRIBUTION WIDTH 16.6 % (11.6-17.2); WHITE BLOOD COUNT 6.6 TH/MM3 (4.0-11.0)
[2016-12-09 08:07] LABS: REVIEW FLAG FINAL
[2016-12-09 08:18] LABS: BICARBONATE 29.5 MEQ/L (21.0-32.0); POTASSIUM 3.8 MEQ/L (3.5-5.1)
[2016-12-09] MEDS: METOPROLOL SUCCINATE 50 MG EXTENDED RELEASE TAB PO SCH (08:19)
[2016-12-09] MEDS: DOCUSATE SODIUM 50 MG/SENNA 8.6 MG TAB PO SCH ×2 (08:20→20:04)
[2016-12-09] MEDS: MULTIVITAMINS/MINERALS THERAPEUTIC TAB PO SCH (08:20)
[2016-12-09] MEDS: LOSARTAN 50 MG TAB PO SCH (08:20)
[2016-12-09] MEDS: SUCRALFATE 1 GM TAB PO SCH ×3 (08:20→18:07)
[2016-12-09] MEDS: PANTOPRAZOLE SOD 40 MG DELAYED RELEASE TAB PO SCH (08:20)
[2016-12-09] MEDS: WARFARIN SOD 4 MG TAB PO SCH (08:21)
[2016-12-09] MEDS: SODIUM CHLORIDE 0.9% FLUSH 5 ML FLUSH IVF SCH ×2 (08:23→20:04)
--- NOTE | 2016-12-09 08:35 | PD.ORT.PN ---
Subjective Post Op Day #: 1 Subjective Remarks pain better. denies cp and sob. Objective Vitals Vital Signs Date Time Temp Pulse Resp B/P Pulse Ox O2 Delivery O2 Flow Rate FiO2 12/09/16 04:00 97.6 98 16 121/63 93 12/09/16 00:00 98.5 104 17 110/59 95 12/08/16 19:00 98.2 101 16 146/73 95 12/08/16 14:30 96.3 73 18 157/67 100 12/08/16 14:12 Nasal Cannula 2.00 12/08/16 13:30 98.3 102 14 158/81 94 Nasal Cannula 2 12/08/16 13:15 104 16 159/79 96 Nasal Cannula 2 12/08/16 13:00 99 15 164/78 95 Nasal Cannula 2 12/08/16 12:45 68 18 151/69 99 Nasal Cannula 2 12/08/16 12:41 98.2 58 20 165/73 100 Nasal Cannula 3 12/08/16 10:20 99.2 78 20 141/72 96 12/08/16 09:52 12/08/16 09:30 99.1 98 20 143/76 94 I/O 12/08/16 12/08/16 12/08/16 12/09/16 12/09/16 12/09/16 06:59 14:59 22:59 06:59 14:59 22:59 Intake Total 675 ml 1423 ml 480 ml 480 ml Output Total 850 ml 480 ml 500 ml Balance 675 ml 573 ml 0 ml -20 ml Intake Oral 240 ml 480 ml 480 ml FFP 675 ml 333 ml Other 850 ml Output Urine Total 800 ml 480 ml 500 ml Estimated Blood Loss 50 ml # Bowel Movements 0 0 0 Result Diagram: 12/09/16 0709 12/09/16 0709 Other Results Laboratory Tests Test 12/09/16 07:09 Prothrombin Time 23.5 SEC (9.8-11.6) Prothromb Time International 2.1 RATIO Ratio Objective Remarks in bed, nad dressing c/d/i neg homans nvi Assessment & Plan Ortho Post Op Day #: 1 Problem List: Assessment and Plan 70-year-old male with a past medical history of leukemia, atrial fibrillation on Coumadin sustained a fall c/o subsequent right hip pain and inability to bear weight. X-rays examination in the emergency department revealed a right intertrochanteric femur fracture. s/p R Troch Nail POD#1 50% PWB daily dressing changes hold coumadin today, INR 2.1, likely resume tomorrow PT d/c planning to snf f/up dr. العلي 2 weeks Karlos Lewis Dec 09, 2016 08:34
--- NOTE | 2016-12-09 11:20 | MP ---
cc: SB IVAN M.D. DATE OF SURGERY 12/08/2016 PREOPERATIVE DIAGNOSIS Right intertrochanteric hip fracture. POSTOPERATIVE DIAGNOSES Right intertrochanteric hip fracture. PROCEDURE Intramedullary nailing right intertrochanteric hip fracture. SURGEON Dr. Sb Ivan DRY PASTE SUPERVISOR Milton Lewis PA-C ANESTHESIA General. ESTIMATED BLOOD LOSS 200 cc. COMPLICATIONS None. IMPLANTS USED Murray-Nephew trochanteric femoral nail, size 11.5 x 180 with a 130-degree lag screw. JUSTIFICATION This patient is a 70-year-old male who fell sustaining a displaced right intertrochanteric hip fracture. He was taken to [facility] Emergency Room. X-rays confirmed the above-named findings. Orthopedic Surgery was consulted. Initially Dr. Gray Olmos saw the patient but then Dr. Olmos had requested my participation in this patient's care. I evaluated the patient. The patient was counseled as to his diagnosis as well as treatment options to include the option of nonoperative versus surgery. Surgery would consist of open reduction internal fixation. The risks of surgery were discussed which include but limited to anesthesia, bleeding, infection, damage to nerves, muscles, blood vessels, failure of hardware, blood clots, pulmonary embolism. The patient understands and has asked appropriate questions; these have all been answered and he does wish to proceed with the surgery as outlined above. PROCEDURE IN DETAIL written consent was obtained. The patient was identified by name, taken to operating room, placed supine on the operating room table. General anesthesia was administered as well as 2 grams of IV Ancef, 1 gram of IV vancomycin. The right foot was placed in the padded traction boot. The left leg was placed in a padded well leg brown. The right lower extremity was prepped and draped using isopropyl alcohol, Hibiclens solution and Chloraprep solution. After a time-out was performed, a longitudinal incision was made over the lateral aspect of right hip. A guidewire was used to gain entrance into the intramedullary canal of the femur from the tip of the greater trochanter. This followed by a cannulated reamer. Subsequently a Murray-Nephew 180-mm x 11.5-mm trochanteric femoral nail was inserted into the intramedullary canal of the femur. The 130-degree locking jig was used to place a guide pin centered in the femoral head. Subsequently a second guide pin was placed anterior for the purposes of lag fixation. Both tunnels were drilled and a 105-mm titanium lag screw was placed initially. Subsequently the inferior screw was placed to allow for compression and locking across the fracture. Fluoroscopic imaging confirmed hardware placement and fracture reduction. Distally the locking jig was used to place a single lateral to medial transverse 37.5-mm locking screw. The surgical wounds were thoroughly irrigated with sterile saline solution. The fascial layer was closed with #1 Vicryl suture, the subcutaneous layer with 3-0 Vicryl suture. The skin was closed with Dermabond, sterile dressing applied. The patient tolerated the procedure well with no intraoperative complications noted. Milton Lewis, physician speech therapy assistant-certified, was present during the entire procedure to include patient positioning and the procedure itself. The medical necessity of a physician speech therapy assistant was indicated in this case due to the complexity of the procedure. He assisted with appropriate manipulation of the leg and also retraction of structures for purposes of exposure. HE assisted with preparation of bone and also implantation of the internal fixation device after appropriate fracture reduction. Sb Ivan MD JWM/SSB /12:22 PM /11:00 AM
--- NOTE | 2016-12-09 13:47 | HHI.PR ---
Subjective Remarks S/P right hip troch nail having mild right hip pain no cp no sob pleasant. family at [facility] Review of Systems 12 point ros completed, negative except as noted above Objective Objective Results - Vital Signs Date Time Temp Pulse Resp B/P Pulse Ox O2 Delivery O2 Flow Rate FiO2 12/09/16 12:00 97.2 74 16 146/69 100 12/09/16 09:51 21 12/09/16 08:00 96.9 105 16 127/69 96 12/09/16 04:00 97.6 98 16 121/63 93 12/09/16 00:00 98.5 104 17 110/59 95 12/08/16 19:00 98.2 101 16 146/73 95 12/08/16 14:30 96.3 73 18 157/67 100 12/08/16 14:12 Nasal Cannula 2.00 I/O 12/08/16 12/08/16 12/08/16 12/09/16 12/09/16 12/09/16 07:00 15:00 23:00 07:00 15:00 23:00 Intake Total 675 ml 1423 ml 480 ml 480 ml Output Total 850 ml 480 ml 500 ml Balance 675 ml 573 ml 0 ml -20 ml Intake Oral 240 ml 480 ml 480 ml FFP 675 ml 333 ml Other 850 ml Output Urine Total 800 ml 480 ml 500 ml Estimated Blood Loss 50 ml # Bowel Movements 0 0 0 Result Diagram: 12/09/16 0709 12/09/16 0709 Other Results Laboratory Tests Test 12/09/16 07:09 White Blood Count 6.6 Red Blood Count 2.48 Hemoglobin 8.5 Hematocrit 25.6 Mean Corpuscular Volume 102.9 Mean Corpuscular Hemoglobin 34.1 Mean Corpuscular Hemoglobin 33.2 Concent Red Cell Distribution Width 16.6 Platelet Count 74 Mean Platelet Volume 10.5 Prothrombin Time 23.5 Prothromb Time International 2.1 Ratio Sodium Level 143 Potassium Level 3.8 Chloride Level 108 Carbon Dioxide Level 29.5 Anion Gap 6 Blood Urea Nitrogen 13 Creatinine 1.02 Estimat Glomerular Filtration 72 Rate Random Glucose 132 Calcium Level 8.1 Physical Exam Physical Exam General General Appearance: Well Developed, Well Nourished, No Acute Distress, Comfortable Eyes Eye Exam: Pupils Equal, Pupils Reactive Ears & Nose Ears & Nose Exam: Nasal Mucosa [employer] Throat Throat Exam: Oral Mucosa [employer] & Moist Neck Neck Exam: Neck Supple, Trachea Midline Pulmonary Resp Exam: Clear Bilaterally, No Distress Cardiology CV Exam: Good Perfusion, Arrhythmia, Pacemaker Gastrointestinal/Abdomen GI Exam: Soft, Non-Tender, Bowel Sounds Present, Non-Distended Musculoskeletal MS Exam: Joints Intact MS Remarks right hip dressing D/I Integumentary Skin Exam: Warm, Dry Extremeties Extremities Exam: No pedal Edema, Pedal Pulses Palpable Neurologic Neuro Exam: Alert, Awake, Oriented, Speech Clear, Medical Staff Physician Equal, No Focal Deficits Psychiatric Psych Exam: Appropriate Responses VTE Prophylaxis VTE Prophylaxis Device: SCDs, TEDs VTE Prophylaxis Meds: Coumadin A/P Assessment and Plan (1) Fracture, intertrochanteric, right femur (2) S/P AVR (aortic valve replacement) (3) Pacemaker (4) CAD (coronary artery disease) (5) Thrombocytopenia (6) Anemia (7) Leukopenia (8) HOCM (hypertrophic obstructive cardiomyopathy) (9) Hx of myomectomy (10) Atrial fibrillation Plan 70 year old male, s/p fall with findings of right intertrochanteric femur fracture S/P right hip troch nail 12/08 Continue with postoperative orthopedic care Continue with Coumadin, follow INR, 2.1 today Bowel regimen Pain management Physical therapy Case management for discharge planning, requesting [facility]. History of valve replacement, A. fib, pacemaker, on chronic anticoagulation, prior myomectomy Coumadin has been resumed Continue with home medications Hx CLL, pancytopenic HH stable continue to monitor CBC Plat 57 We will order cardiac telemetry Case management for discharge planning Continue with Coumadin for DVT prophylaxis Protonix and Carafate for GI prophylaxis labs reviewed Discussed with RN Discussed with patient Myron Banks MD Dec 09, 2016 13:47
[2016-12-09] MEDS: TAMSULOSIN HCL 0.4 MG CAP PO SCH (20:04)
[2016-12-09] MEDS: PRAVASTATIN SOD 40 MG TAB PO SCH (20:04)
[2016-12-10 00:10] VITALS: BP 135/76; PULSE 84; RESP 18; TEMP 97; O2SAT 96
[2016-12-10] MEDS: DEXT 5%-NACL 0.45% 1000 ML INJ 1,000 ML IV SCH (00:25)
[2016-12-10 04:10] VITALS: BP 126/74; PULSE 87; RESP 18; TEMP 96.8; O2SAT 99
[2016-12-10] MEDS: CARBIDOPA/LEVODOPA 10 MG/100 MG TAB PO SCH ×2 (05:45→15:13)
[2016-12-10] MEDS: MAGNESIUM HYDROXIDE SUSP 30 ML CUP PO PRN ×2 (05:45→15:13)
--- NOTE | 2016-12-10 07:41 | PD.ORT.PN ---
Subjective Post Op Day #: 2 Subjective Remarks feeling better. denies cp and sob. Objective Vitals Vital Signs Date Time Temp Pulse Resp B/P Pulse Ox O2 Delivery O2 Flow Rate FiO2 12/10/16 04:10 96.8 87 18 126/74 99 12/10/16 00:10 97.0 84 18 135/76 96 12/09/16 23:00 88 12/09/16 20:10 99.6 83 18 140/76 96 12/09/16 20:00 96 Room Air 12/09/16 20:00 86 12/09/16 16:00 98.9 76 18 156/79 100 12/09/16 12:00 97.2 74 16 146/69 100 12/09/16 09:51 21 12/09/16 08:00 96.9 105 16 127/69 96 I/O 12/09/16 12/09/16 12/09/16 12/10/16 12/10/16 12/10/16 07:00 15:00 23:00 07:00 15:00 23:00 Intake Total 480 ml 600 ml 1139 ml 641 ml Output Total 500 ml 500 ml 1125 ml Balance -20 ml 600 ml 639 ml -484 ml Intake Oral 480 ml 600 ml 240 ml 240 ml IV Total 899 ml 401 ml Output Urine Total 500 ml 500 ml 1125 ml # Voids 3 # Bowel Movements 0 0 0 0 Result Diagram: 12/09/16 0709 12/09/16 0709 Objective Remarks in bed, nad dressing c/d/i thigh soft neg homans nvi Assessment & Plan Ortho Post Op Day #: 2 Problem List: Assessment and Plan 70-year-old male with a past medical history of leukemia, atrial fibrillation on Coumadin sustained a fall c/o subsequent right hip pain and inability to bear weight. X-rays examination in the emergency department revealed a right intertrochanteric femur fracture. s/p R Troch Nail POD#1 50% PWB daily dressing changes resume coumadin PT d/c planning to snf ortho stable f/up dr. العلي 2 weeks Karlos Lewis Dec 10, 2016 07:41
[2016-12-10] MEDS: LOSARTAN 50 MG TAB PO SCH (07:47)
[2016-12-10] MEDS: MULTIVITAMINS/MINERALS THERAPEUTIC TAB PO SCH (07:47)
[2016-12-10] MEDS: METOPROLOL SUCCINATE 50 MG EXTENDED RELEASE TAB PO SCH (07:47)
[2016-12-10] MEDS: PANTOPRAZOLE SOD 40 MG DELAYED RELEASE TAB PO SCH (07:48)
[2016-12-10] MEDS: SUCRALFATE 1 GM TAB PO SCH ×2 (07:48→15:25)
[2016-12-10] MEDS: DOCUSATE SODIUM 50 MG/SENNA 8.6 MG TAB PO SCH (07:48)
[2016-12-10] MEDS: SODIUM CHLORIDE 0.9% FLUSH 5 ML FLUSH IVF SCH (07:50)
[2016-12-10 07:52] LABS: INTERNATIONAL NORMALIZED RATIO 1.7 RATIO; PROTHROMBIN TIME - PATIENT 19.4 SEC (9.8-11.6)
[2016-12-10 07:57] VITALS: BP 127/71; PULSE 102; RESP 18; TEMP 97; O2SAT 98
[2016-12-10 08:02] LABS: HEMATOCRIT 22.3 % (39.0-51.0); MEAN CELL VOLUME 100.2 FL (80.0-100.0); MEAN CORPUSCULAR HEMOGLOBIN 35.2 PG (27.0-34.0); MEAN CORPUSCULAR HGB CONC 35.1 % (32.0-36.0); PLATELET COUNT 63 TH/MM3 (150-450); RED BLOOD COUNT 2.23 MIL/MM3 (4.50-5.90); RED CELL DISTRIBUTION WIDTH 16.1 % (11.6-17.2)
[2016-12-10 08:15] LABS: BICARBONATE 31.1 MEQ/L (21.0-32.0); POTASSIUM 3.4 MEQ/L (3.5-5.1)
[2016-12-10 08:20] LABS: REVIEW FLAG FINAL
[2016-12-10 11:25] VITALS: BP 94/60; PULSE 96; RESP 18; TEMP 97.3; O2SAT 96
--- NOTE | 2016-12-10 13:05 | HHI.PR ---
Subjective Subjective Remarks S/P right hip troch nail today Pain well controlled no cp no sob No BM yet family at [facility] (Anisha Ball) Review of Systems Constitutional Constitutional Remarks 12 point ros completed, negative except as noted above (Anisha Ball) Vitals/Results Intake & Output 12/09/16 12/09/16 12/10/16 14:59 22:59 06:59 Intake Total 600 ml 1139 ml 641 ml Output Total 500 ml 1125 ml Balance 600 ml 639 ml -484 ml Intake Oral 600 ml 240 ml 240 ml IV Total 899 ml 401 ml Output Urine Total 500 ml 1125 ml # Voids 3 # Bowel Movements 0 0 0 Vital Signs Vital Signs Date Time Temp Pulse Resp B/P Pulse Ox O2 Delivery O2 Flow Rate FiO2 12/10/16 07:57 97.0 102 18 127/71 98 12/10/16 04:10 96.8 87 18 126/74 99 12/10/16 00:10 97.0 84 18 135/76 96 12/09/16 23:00 88 12/09/16 20:10 99.6 83 18 140/76 96 12/09/16 20:00 96 Room Air 12/09/16 20:00 86 12/09/16 16:00 98.9 76 18 156/79 100 (Anisha Ball) CBC/BMP: 12/10/16 0650 12/10/16 0650 Lab Results Laboratory Tests Test 12/10/16 06:50 White Blood Count 4.0 TH/MM3 Red Blood Count 2.23 MIL/MM3 Hemoglobin 7.8 GM/DL Hematocrit 22.3 % Mean Corpuscular Volume 100.2 FL Mean Corpuscular Hemoglobin 35.2 PG Mean Corpuscular Hemoglobin 35.1 % Concent Red Cell Distribution Width 16.1 % Platelet Count 63 TH/MM3 Mean Platelet Volume 10.9 FL Prothrombin Time 19.4 SEC Prothromb Time International 1.7 RATIO Ratio Sodium Level 142 MEQ/L Potassium Level 3.4 MEQ/L Chloride Level 107 MEQ/L Carbon Dioxide Level 31.1 MEQ/L Anion Gap 4 MEQ/L Blood Urea Nitrogen 12 MG/DL Creatinine 0.83 MG/DL Estimat Glomerular Filtration 91 ML/MIN Rate Random Glucose 106 MG/DL Calcium Level 8.2 MG/DL (Gross,Anisha G. TRAIN DIRECTOR) Physical Exam General General Appearance: Well Developed, Well Nourished, No Acute Distress, Comfortable (Anisha Ball G. TRAIN DIRECTOR) Eyes Eye Exam: Pupils Equal, Pupils Reactive (Anisha Ball G. TRAIN DIRECTOR) Ears & Nose Ears & Nose Exam: Nasal Mucosa [place] (GrossAnisha G. TRAIN DIRECTOR) Throat Throat Exam: Oral Mucosa [place] & Moist (Anisha Ball G. TRAIN DIRECTOR) Neck Neck Exam: Neck Supple, Trachea Midline (Anisha Ball G. TRAIN DIRECTOR) Pulmonary Resp Exam: Clear Bilaterally, No Distress (GrossAnisha G. TRAIN DIRECTOR) Cardiology CV Exam: Good Perfusion, Arrhythmia, Pacemaker (GrossAnisha G. TRAIN DIRECTOR) Gastrointestinal/Abdomen GI Exam: Soft, Non-Tender, Bowel Sounds Present, Non-Distended (Anisha Ball G. TRAIN DIRECTOR) Musculoskeletal MS Exam: Joints Intact MS Remarks right hip dressing D/I (Anisha Ball G. TRAIN DIRECTOR) Integumentary Skin Exam: Warm, Dry (Anisha Ball. TRAIN DIRECTOR) Extremeties Extremities Exam: No Edema, Pedal Pulses Palpable (Anisha Ball G. TRAIN DIRECTOR) Neurologic Neuro Exam: Alert, Awake, Oriented, Speech Clear, Clocksmith Equal, No Focal Deficits (Anisha Ball G. TRAIN DIRECTOR) Psychiatric Psych Exam: Appropriate Responses (Anisha Ball G. TRAIN DIRECTOR) VTE Prophylaxis VTE Prophylaxis Device: SCDs, TEDs VTE Prophylaxis Meds: Coumadin (Anisha Ball G. TRAIN DIRECTOR) Assessment/Plan Problem List: (1) Fracture, intertrochanteric, right femur (2) S/P AVR (aortic valve replacement) (3) Pacemaker (4) CAD (coronary artery disease) (5) Thrombocytopenia (6) Anemia (7) Leukopenia (8) HOCM (hypertrophic obstructive cardiomyopathy) (9) Hx of myomectomy (10) Atrial fibrillation Assessment/Plan 70 year old male, s/p fall with findings of right intertrochanteric femur fracture S/P right hip troch nail 12/08 Continue with postoperative orthopedic care Continue with Coumadin, follow INR, 1.7 today Bowel regimen Pain management Physical therapy MOM given, monitor for response History of valve replacement, A. fib, pacemaker, on chronic anticoagulation, prior myomectomy continue with Coumadin Continue with home medications Hx CLL, pancytopenic Hgb 7.8 no transfusion continue to monitor CBC Plat 63 CBC to be repeated at rehab CM for dc planning, [facility] accepted Pain controlled, stable for dc. Cleared by ortho Discharged to SNF today F/U ortho 2 weeks Diet heart healthy Activity per ortho Discussed with RN Discussed with patient and family Discussed with CM Discussed with Dr. Banks This patient was seen by myself and Dr. Banks, this note is written on his behalf (Anisha Ball) Assessment/Plan pt seen and examined today as above labs reviewed [facility] help dw pt dw preparation supervisor about plan of care plan for dc today (Myron Banks MD) Problem Qualifiers (1) Fracture, intertrochanteric, right femur: (2) CAD (coronary artery disease): Qualified Code: I25.10 - Coronary artery disease involving nikolski coronary artery of nikolski heart without angina pectoris (3) Anemia: Qualified Code: D64.9 - Anemia, unspecified type (4) Leukopenia: Qualified Code: D72.819 - Leukopenia, unspecified type (5) Atrial fibrillation: Qualified Code: I48.2 - Chronic atrial fibrillation Anisha Ball Dec 10, 2016 13:05 Myron Banks MD Dec 10, 2016 13:17
--- NOTE | 2016-12-10 13:07 | HHI.DCPOC ---
Discharge Care Plan Diagnosis: (1) Closed fracture of intertrochanteric section of femur Your Health Problems Are: Difficulty with ADL Goals to Promote Your Health * To prevent worsening of your condition and complications * To maintain your health at the optimal level Directions to Meet Your Goals Take your medications as prescribed Follow your dietary instruction Follow activity as directed Keep your appointments as scheduled Take your immunizations and boosters as scheduled If your symptoms worsen call your PCP, if no PCP go to Urgent Care Center or Emergency Room Smoking is Dangerous to Your Health. Avoid second hand smoke Call the 24-hour hour crisis hotline for domestic abuse at Anisha Ball [facility] Dec 10, 2016 13:07
--- NOTE | 2016-12-10 13:07 | HHI.DS ---
Discharge Summary Admission Date Dec 07, 2016 at 04:23 Discharge Date: Dec 10, 2016 Admitting Diagnosis right hip fracture (1) Closed fracture of intertrochanteric section of femur (2) HOCM (hypertrophic obstructive cardiomyopathy) (3) Atrial fibrillation (4) Pacemaker (5) CAD (coronary artery disease) (6) S/P AVR (aortic valve replacement) (7) Hx of myomectomy (8) Anemia (9) Leukopenia (10) Thrombocytopenia Procedures DATE OF SURGERY 12/08/2016 PREOPERATIVE DIAGNOSIS Right intertrochanteric hip fracture. POSTOPERATIVE DIAGNOSES Right intertrochanteric hip fracture. PROCEDURE Intramedullary nailing right intertrochanteric hip fracture. CBC/BMP: 12/10/16 0650 12/10/16 0650 Significant Findings Laboratory Tests Test 12/08/16 12/08/16 12/09/16 12/10/16 05:14 05:17 07:09 06:50 Prothrombin Time 19.6 SEC 23.5 SEC 19.4 SEC (9.8-11.6) (9.8-11.6) (9.8-11.6) Activated Partial 34.9 SEC Thromboplast Time (24.3-30.1) White Blood Count 3.4 TH/MM3 (4.0-11.0) Red Blood Count 2.72 MIL/MM3 2.48 MIL/MM3 2.23 MIL/MM3 (4.50-5.90) (4.50-5.90) (4.50-5.90) Hemoglobin 9.3 GM/DL 8.5 GM/DL 7.8 GM/DL (13.0-17.0) (13.0-17.0) (13.0-17.0) Hematocrit 27.7 % 25.6 % 22.3 % (39.0-51.0) (39.0-51.0) (39.0-51.0) Mean Corpuscular Volume 101.8 FL 102.9 FL 100.2 FL (80.0-100.0) (80.0-100.0) (80.0-100.0) Mean Corpuscular Hemoglobin 34.3 PG 34.1 PG 35.2 PG (27.0-34.0) (27.0-34.0) (27.0-34.0) Platelet Count 57 TH/MM3 74 TH/MM3 63 TH/MM3 (150-450) (150-450) (150-450) Monocytes (%) (Auto) 15.7 % (0.0-8.0) Lymphocytes # (Auto) 0.5 TH/MM3 (1.0-4.8) Platelet Estimate LOW (NORMAL) Chloride Level 108 MEQ/L (98-107) Estimat Glomerular Filtration 72 ML/MIN (>89) Rate Random Glucose 132 MG/DL (74-106) Calcium Level 8.1 MG/DL 8.2 MG/DL (8.5-10.1) (8.5-10.1) Potassium Level 3.4 MEQ/L (3.5-5.1) Anion Gap 4 MEQ/L (5-15) Imaging Last Impressions Hip X-Ray 12/08/16 0000 Signed Impressions: Service Date/Time: Thursday, December 08, 2016 12:16 - CONCLUSION: Intact postsurgical changes. Ida Anguiano MD Hip and Pelvis X-Ray 12/07/16234 Signed Impressions: Service Date/Time: Wednesday, December 07, 2016 02:53 - CONCLUSION: Oblique nondisplaced fracture of the trochanter region of the right hip. Edy Cano MD Femur X-Ray 12/07/165 Signed Impressions: Service Date/Time: Wednesday, December 07, 2016 02:53 - CONCLUSION: Low intertrochanteric fracture on the right. Edy Cano MD Chest X-Ray 12/07/165 Signed Impressions: Service Date/Time: Wednesday, December 07, 2016 02:52 - CONCLUSION: Normal examination. Edy Cano MD Hospital Course This is a pleasant 70 year-old white male who got up to go to the bathroom at night approximately 1:30 a.m., misjudged where his bed was when attempting to get back into the bed and fell hitting his right hip. He stated he heard the crack and had extreme pain immediately. The patient lives with his son who he called out to and was brought to the emergency room for further evaluation. He denied hitting his head. He denied any headache. Denied any chest pain. No shortness of breath. He does have a significant history of cardiovascular Was evaluated in the ED: WBC count 3.4, RBC 3.45, hemoglobin 11.8, hematocrit 34.8, platelet count 79. Monocyte percentage auto 16.1. All other dif is normal. PT/INR 2.1. Chemistry: Sodium 145, potassium 3.5, chloride 112, carbon dioxide 27, BUN 16, creatinine 1.02, GFR 72. Random glucose is 98, calcium is 8.1, bilirubin 1.1. IMAGING STUDIES: Chest x-ray, normal exam. Femur x-ray, low intertrochanteric fracture right side. Hip/pelvis x-ray, oblique nondisplaced fracture of the trochanter region of the right hip. Pt. was admitted for: 1. Oblique nondisplaced fracture of the trochanter region of the right hip. 2. Thrombocytopenia. 3. History of coronary artery disease. 4. History of TIAs. 5. History of aortic valve replacement. 6. Anemia. 7. Leukopenia with history of cardiovascular disease. 8. Coumadin therapy. 9. History of CLL. During the course of the hospitalization, the following took place: Patient was admitted, kept n.p.o. orthopedic was consulted, surgery was recommended. Coumadin was put on hold Patient was put on appropriate pain management, IV fluids. SCDs for DVT prophylaxis. Patient has history of CLL, was noted leukopenic. S/P right hip troch nail 12/08 postoperative orthopedic care done Patient had an uneventful course. Continued with Coumadin, followed Bowel regimen Pain management Physical therapy Case management for discharge planning, requested [facility]. History of valve replacement, A. fib, pacemaker, on chronic anticoagulation, prior myomectomy Coumadin has been resumed Continued with home medications Hx CLL, pancytopenic HH 7.8, no need for transfusion. CBC to checked at SNF Plat stable Cardiac telemetry was ordered. Case management for discharge planning Pt. remained stable, pain well controlled No fever Cleared for dc by ortho Patient was discharged to SNF in stable condition Instructed to: Follow-up with orthopedics in 2 weeks Diet heart healthy Repeat CBC at SNF Activity per ortho Pt Condition on Discharge: Stable Discharge Disposition: Discharge to SNF Discharge Instructions DIET: Follow Instructions for: Heart Healthy Diet Activities you can perform: Partial Weight Bearing Follow up Referrals: Orthopedics - 2 Weeks @ [facility] with Mark Olmos Jr., MD New Medications: Hydrocodone-Acetaminophen (Mcrae) 7.5-325 mg Tab 1-2 TAB PO Q6H PRN PAIN #90 Ref 0 TAB Oxycodone-Acetaminophen (Percocet) 5-325 mg Tab 1 TAB PO Q4H PRN PAIN #60 Ref 0 TAB Continued Medications: Albuterol 6.7 GM Inh (Proventil Hfa 6.7 GM Inh) 90 Mcg/Act Aer 2 PUFF INH Q4-6H PRN SHORTNESS OF BREATH #1 Ref 0 INHALER Ascorbic Acid (Vitamin C) 250 Mg Tab 500 MG PO DAILY Nutritional Supplement Ref 0 TAB Carbidopa-Levodopa (Sinemet) 10-100 Mg Tab 0.5 TAB PO Q8HR Parkinson Disease Mgmt #90 Ref 0 TAB Cyanocobalamin (Vitamin B-12) (Vitamin B12) 2,500 Mcg Tab.chew 3000 MCG SL DAILY Losartan (Losartan) 50 Mg Tab 50 MG PO DAILY Blood Pressure Management #30 Ref 0 TAB Metoprolol Succinate ER 24 HR (Toprol XL) 100 Mg Tab 100 MG PO DAILY #30 Ref 0 TAB Pantoprazole (Pantoprazole) 40 Mg Tab 40 MG PO DAILY Reflux #30 Ref 0 TAB Simvastatin (Simvastatin) 20 Mg Tab 20 MG PO HS Cholesterol Management #30 Ref 0 TAB Sucralfate (Sucralfate) 1 Gm Tab 1 MG PO TID on empty stomach Duodenal ulcer #90 Ref 0 TAB Tamsulosin (Tamsulosin) 0.4 Mg Cap 0.4 MG PO HS Manage Prostate Problems #30 Ref 0 CAP Warfarin (Warfarin) 4 Mg Tab 4 MG PO DAILY Blood Clot Prevention #30 Ref 0 TAB Discontinued Medications: Epoetin Inj (Procrit Inj) 2,000 Unit/Ml Inj 2000 UNITS SQ every other Anemia #12 Ref 0 VIAL Filgrastim Inj (Neupogen Inj) 300 Mcg/0.5 Ml Syr 300 MCG SQ every other day Ref 0 SYRINGE Sucralfate (Sucralfate) 1 Gm Tab 1 GM PO TID on empty stomach PRN UPSET STOMACH #90 Ref 0 TAB Anisha Ball Dec 10, 2016 13:07 pending. Will follow the plan of care based on the course of action with this hospital stay. Vital signs: Q4 and is warranted. Will monitor his labs. He is admitted inpatient status. Currently he is on bed rest. Medications have been reconciled. Will keep him on IV fluids for hydration, D5 NS. Monitor for any signs of shortness of breath or change in his pulmonary status. The patient is seen to be leukopenic but does have a history of CLL with chemotherapy that has been done in 2015. Will monitor his CBC, and note any acute changes. Will place him on telemetry. The patient has had sinus rhythm with some possible atrial fibrillation in the past. Will hold on any vitamin K until seen by ortho. I discussed in detail patient's wishes for his code status. He does have a living will but has not discussed with his family any of his wishes. He states that he does not think he wants to be intubated if anything acute happens to him, but I requested that he speak to his family and think about his wishes before we make any quick decisions. The patient agreed with that plan. If anything changes, he will let us know. Dictated by: AMY Owen (1) Fracture, intertrochanteric, right femur (2) S/P AVR (aortic valve replacement) (3) Pacemaker (4) CAD (coronary artery disease) (5) Thrombocytopenia (6) Anemia (7) Leukopenia (8) HOCM (hypertrophic obstructive cardiomyopathy) (9) Hx of myomectomy (10) Atrial fibrillation Assessment/Plan 70 year old male, s/p fall with findings of right intertrochanteric femur fracture S/P right hip troch nail 12/08 Continue with postoperative orthopedic care Continue with Coumadin, follow INR, 1.7 today Bowel regimen Pain management Physical therapy Case management for discharge planning, requesting [facility]. History of valve replacement, A. fib, pacemaker, on chronic anticoagulation, prior myomectomy Coumadin has been resumed Continue with home medications Hx CLL, pancytopenic HH stable continue to monitor CBC Plat 57 We will order cardiac telemetry Case management for discharge planning Continue with Coumadin for DVT prophylaxis Protonix and Carafate for GI prophylaxis CBC and BMP in the morning Discussed with RN Discussed with patient and family Discussed with CM Discussed with Dr. Banks This patient was seen by myself and Dr. Banks, this note is written on his behalf Pt Condition on Discharge: Stable Discharge Disposition: Discharge to SNF Discharge Instructions DIET: Follow Instructions for: Heart Healthy Diet Activities you can perform: Partial Weight Bearing Follow up Referrals: Orthopedics - 2 Weeks [facility] with Denard,Mark Jr. MD New Medications: Hydrocodone-Acetaminophen (Mcrae) 7.5-325 mg Tab 1-2 TAB PO Q6H PRN PAIN #90 Ref 0 TAB Oxycodone-Acetaminophen (Percocet) 5-325 mg Tab 1 TAB PO Q4H PRN PAIN #60 Ref 0 TAB Continued Medications: Albuterol 6.7 GM Inh (Proventil Hfa 6.7 GM Inh) 90 Mcg/Act Aer 2 PUFF INH Q4-6H PRN SHORTNESS OF BREATH #1 Ref 0 INHALER Ascorbic Acid (Vitamin C) 250 Mg Tab 500 MG PO DAILY Nutritional Supplement Ref 0 TAB Carbidopa-Levodopa (Sinemet) 10-100 Mg Tab 0.5 TAB PO Q8HR Parkinson Disease Mgmt #90 Ref 0 TAB Cyanocobalamin (Vitamin B-12) (Vitamin B12) 2,500 Mcg Tab.chew 3000 MCG SL DAILY Losartan (Losartan) 50 Mg Tab 50 MG PO DAILY Blood Pressure Management #30 Ref 0 TAB Metoprolol Succinate ER 24 HR (Toprol XL) 100 Mg Tab 100 MG PO DAILY #30 Ref 0 TAB Pantoprazole (Pantoprazole) 40 Mg Tab 40 MG PO DAILY Reflux #30 Ref 0 TAB Simvastatin (Simvastatin) 20 Mg Tab 20 MG PO HS Cholesterol Management #30 Ref 0 TAB Sucralfate (Sucralfate) 1 Gm Tab 1 MG PO TID on empty stomach Duodenal ulcer #90 Ref 0 TAB Tamsulosin (Tamsulosin) 0.4 Mg Cap 0.4 MG PO HS Manage Prostate Problems #30 Ref 0 CAP Warfarin (Warfarin) 4 Mg Tab 4 MG PO DAILY Blood Clot Prevention #30 Ref 0 TAB Discontinued Medications: Epoetin Inj (Procrit Inj) 2,000 Unit/Ml Inj 2000 UNITS SQ every other Anemia #12 Ref 0 VIAL Filgrastim Inj (Neupogen Inj) 300 Mcg/0.5 Ml Syr 300 MCG SQ every other ursday Ref 0 SYRINGE Sucralfate (Sucralfate) 1 Gm Tab 1 GM PO TID on empty stomach PRN UPSET STOMACH #90 Ref 0 TAB Anisha Ball Dec 10, 2016 13:07
[2016-12-10] MEDS ORDERED: POTASSIUM CHLORIDE 25 MEQ EFFERVESCENT TAB PO ONE (13:15)
[2016-12-10] MEDS: WARFARIN SOD 4 MG TAB PO SCH (15:12)
[2016-12-10 16:00] VITALS: BP 130/61; PULSE 77; RESP 18; TEMP 96.5; O2SAT 98
== END 2016-12-10 17:49 | DRG 481 ==
LOC: NEPE 02:28 → NEDA 04:23 → N06B 05:02
PROVIDERS: ADMIT Internal Medicine; ATTEND Internal Medicine
PROC: 30233K1 Transfusion of Nonautologous Frozen Plasma into Peripheral Vein, Percutaneous Approach (ICD-10-PCS; 2016-12-07)
PROC: 30233R1 Transfusion of Nonautologous Platelets into Peripheral Vein, Percutaneous Approach (ICD-10-PCS; 2016-12-08)
PROC: 0QS606Z Reposition Right Upper Femur with Intramedullary Internal Fixation Device, Open Approach (ICD-10-PCS; principal; 2016-12-08 09:30)
DX: S72.144A Nondisplaced intertrochanteric fracture of right femur, initial encounter for closed fracture (principal); I42.1 Obstructive hypertrophic cardiomyopathy; D61.818 Other pancytopenia; D69.6 Thrombocytopenia, unspecified; J44.9 Chronic obstructive pulmonary disease, unspecified; E78.5 Hyperlipidemia, unspecified; K21.9 Gastro-esophageal reflux disease without esophagitis; I10 Essential (primary) hypertension; D64.9 Anemia, unspecified; I48.2 Chronic atrial fibrillation; I25.10 Atherosclerotic heart disease of native coronary artery without angina pectoris; Z95.2 Presence of prosthetic heart valve; Z86.73 Personal history of transient ischemic attack (TIA), and cerebral infarction without residual deficits; Y92.013 Bedroom of single-family (private) house as the place of occurrence of the external cause; Z79.01 Long term (current) use of anticoagulants; Z92.21 Personal history of antineoplastic chemotherapy; Z85.6 Personal history of leukemia; Z95.0 Presence of cardiac pacemaker; Z85.528 Personal history of other malignant neoplasm of kidney
CPT/HCPCS: 36430; 71010; 73502; 73552; 76000; 80048; 80053; 85025; 85027; 85610; 85730; 86850; 86900; 86901; 86927; 93005; 94150; J0690; J1580; J2270; J2405; J3010; J3370; J7030; J7042; J7050; P9017; P9035

== ENCOUNTER 2017-01-14 10:50 | Day surgery (SDC) | payer MEDICARE ==
[~2017-01-14] VITALS: Ht 180.3 cm; Wt 88.4 kg
[~2017-01-14 10:50] MED LIST changes: +ALBU6.7H INH; -ASPI81TA45 PO; -CEPH500C3 PO; -CYAN1000P IM; +CYAN25005 SL; -DOCU50SY2 PO; -ENOX100P SQ; +HYDR-3288 PO; -HYDR-3533 PO; -KONS520C PO; -MACR100C PO; -OMEP20TA PO; +PANT40TA3 PO; +SIMV20TA PO; +SUCR1TAB PO; +TAMS0.4C4 PO; -TAMS0.4C67 PO; +TOPR100T PO; -TOPR50TA PO; +VITA250T3 PO; -VITA500C PO; -WARF-60 PO; -ZOCO40TA PO
[2017-01-14] MEDS ORDERED: NS 1000 ML IV SCH (11:00)
[2017-01-14] MEDS ORDERED: LACTATED RINGER'S 1000 ML IV PRN (11:30)
[2017-01-14] MEDS ORDERED: SODIUM CHLORID 0.9% 500 ML IV PRN (11:30)
[2017-01-14] MEDS ORDERED: METOPROLOL TARTRATE 25 MG TAB PO PRN (11:30)
[2017-01-14] MEDS ORDERED: LORazepam 1 MG TAB SL SCH (11:30)
[2017-01-14] MEDS ORDERED: MUPIROCIN 2% OINT 1 APPLIC/GM SYR NASAL SCH (11:30)
[2017-01-14] MEDS ORDERED: CHLORHEXIDINE GLUCONATE 2 % 1 PACK (2 CLOTHS) TOPICAL PRN (11:30)
[2017-01-14] MEDS ORDERED: POVIDONE IODINE 5% (ANTISEPSIS KIT) 4 APPLICATIONS EACH NARE PRN (11:30)
[2017-01-14] MEDS ORDERED: VANCOMYCIN 1000 MG/NS 250 ML IV SCH ×2 (11:30)
[2017-01-14] MEDS ORDERED: POVIDONE IODINE 5% (ANTISEPSIS KIT) 4 APPLICATIONS EACH NARE SCH (11:30)
[2017-01-14] MEDS ORDERED: INSULIN HUMAN REGULAR 1,000 UNITS/10 ML VIAL SQ PRN (11:30)
[2017-01-14] MEDS ORDERED: ceFAZolin 2 GM PREMIX 50 ML IV SCH (11:30)
[2017-01-14] MEDS ORDERED: CHLORHEXIDINE GLUCONATE 2 % 1 PACK (2 CLOTHS) TOPICAL SCH (11:30)
[2017-01-14] MEDS ORDERED: NEUP300I4 SQ (11:37)
[2017-01-14] MEDS ORDERED: [UNRECOGNIZED DRUG - CODE] SQ (11:37)
[2017-01-14 11:39] LABS: AUTOMATED NEUTROPHIL # 2.4 TH/MM3 (1.8-7.7); BASOPHIL % 0.3 % (0.0-2.0); EOSINOPHIL # 0.1 TH/MM3 (0-0.4); HEMATOCRIT 34.5 % (39.0-51.0); LYMPH % 20.9 % (9.0-44.0); LYMPHOCYTE # 0.7 TH/MM3 (1.0-4.8); MEAN CELL VOLUME 93.5 FL (80.0-100.0); MEAN CORPUSCULAR HEMOGLOBIN 32.4 PG (27.0-34.0); MEAN CORPUSCULAR HGB CONC 34.7 % (32.0-36.0); MONO % 10.8 % (0.0-8.0); PLATELET COUNT 96 TH/MM3 (150-450); RED BLOOD COUNT 3.69 MIL/MM3 (4.50-5.90); RED CELL DISTRIBUTION WIDTH 18.7 % (11.6-17.2); WHITE BLOOD COUNT 3.6 TH/MM3 (4.0-11.0)
[2017-01-14 11:40] VITALS: BP 149/89; PULSE 79; RESP 18; TEMP 98.1; O2SAT 99
[2017-01-14 11:41] LABS: HEMO FLAGS AUTO DIFF
[2017-01-14 11:50] LABS: INTERNATIONAL NORMALIZED RATIO 1.4 RATIO; PROTHROMBIN TIME - PATIENT 16.1 SEC (9.8-11.6)
[2017-01-14 11:51] LABS: APTT (PATIENT) 25.2 SEC (24.3-30.1)
[2017-01-14 12:06] LABS: BICARBONATE 30.7 MEQ/L (21.0-32.0); POTASSIUM 3.1 MEQ/L (3.5-5.1)
[2017-01-14 12:10] LABS: SCAN/DIFF AUTO DIFF CONFIRMED
[2017-01-14] MEDS ORDERED: SODIUM CHLOR 0.9% 250 ML INJ 250 ML ONE (12:51)
[2017-01-14] MEDS ORDERED: POTASSIUM CHLOR 20 MEQ PREMIX 100 ML ONE (12:51)
[2017-01-14] MEDS ORDERED: MIDAZOLAM HCL 2 MG/2 ML VIAL ONE (12:53)
[2017-01-14] MEDS ORDERED: VANCOMYCIN 500 MG VIAL ONE (12:58)
[2017-01-14] MEDS ORDERED: LIDOCAINE HCL 2% 50 ML VIAL ONE (12:58)
--- NOTE | 2017-01-14 14:31 | CATHPROC ---
[facility] HIS Report Study Information Study Number Admission Scheduled Start Study Start [id number] Jan 14 2017 10:50AM 01/14/2017 Jan 14 2017 12:46PM [place] [facility] Cardiac Pacer/ICD Admit Source Facility Department Other [facility] - Instructional Design Specialist Physician and Clinical Staff Initial John Babb Billing And Quality Technician Jessica Norman,RT(R) TECH2 Other Anesthesia, DRESS DRAPER Recorder Nissa Portillo,RN Scrub Gordon Xavier,RT(R) Equipment Time Edge Burnisher Description Size Mfg Part Number Used/Scraped DERMABOND, ADHESIVE SKIN [id number] 12:57 CORDIS/PACER * Used GLUE MINI *[id number] 12:57 MEDLINE IND[employer]ES SUTURE, STRIP PLUS 1/2" * Used *[id number] 12:57 MEDLINE PACER PINTO, LIMB * 2530 *[id number] Used [id number] 12:57 MEDLINE PACER PACK, PACER CUSTOM * Used *[id number] 13:12 Needle Sponge Count 1 1 Used 13:13 Needle Sponge Count 1 111 Used 13:13 Needle Sponge Count 2 2 Used 13:13 Needle Sponge Count 25 1 Used SUTURE, 2-0 VICRYL [CT1] ([id number]) [id number] 12:57 [employer],WARM AIR CCL * Used *[id number] 13:38 [facility] [employer] PACEMAKER, ASSRANDA ALTAMIRANO DDDR [id number] Used [facility] PAD, ELECTROSURGICAL 12:57 * [id number] *[id number] Used SURGICAL GROUNDING ORANGE 12:59 [employer]IT[employer] PLASMABLADE, PEAD 3.0S * [id number] Used Equipment Model, Serial, Lot Number and Expiration Data Description Model Number Serial Number Lot Number Expiration Date PACEMAKER, ASSRANDA ALTAMIRANO [id number] 06-10-2018 Medication Medication Total Dose (Bolus/Oral) Medication Total Dosage/Unit 2% XYLOCAINE 50 mL Medications (Bolus/Oral) Medication Time Given Dosage/Unit Administered By Reason 2% XYLOCAINE 01/14/2017 1:31:46 PM 50 mL John Josue 50 mL 2% XYLOCAINE given in lab by John Josue via Subcutaneous. Medication (Drip) Medication Time Given Dosage/Unit Concentration/Unit Diluent (ml) Solution ANCEF 01/14/2017 1:11:08 PM 2 g 2 g ANCEF given in lab by Anesthesia, DRESS DRAPER via Peripheral IV. IV Solutions 01/14/2017 1:10:41 PM 0 mL (IV) 500 NaCl .9 IV Solutions given pre op by Anesthesia, DRESS DRAPER in Left Antecubital via Peripheral IV. Pump/Drip Flow = 20 ml/hr using NaCl .9. VANCOMYCIN DRIP 01/14/2017 1:11:15 PM 1 g 1 g VANCOMYCIN DRIP given in lab by Anesthesia, DRESS DRAPER via Peripheral IV. Final Case Assessment Cardiovascular HR Rhythm NIBP Chest Pain 80 paced 147/82 0 Edema Present Skin color Skin None Normal Warm Dry Neurological State Oriented to time-place- Alert Moves all extremities person Respiration - General Respiration Rate SpO2 (%) (B/min) 18 99 Chronological Log Time Study Chronological Log 12:45:58 Patient arrived via Bed. 12:45:59 Patient Name, D.O.B, / Armband Verified By R.N. 12:45:59 Consent signed by the physician and the patient and verified by the Instructional Design Specialist staff. 12:46:00 Pre-op and post- op instructions given; patient acknowledges understanding of instruction s. 12:46:01 Verbal Stimulation=2 Physical Stimulation=2 Airway=2 Respiration=2 TOTAL=8. (0=absent, 1= limited, 2=present) 12:46:50 Patient has been NPO for More than 6Hrs. 12:46:51 Skin Breakdown- none per pt 12:46:58 Patient Warmer Placed on the Table. 12:46:59 Disposable Defibrillator Pads Placed On Patient. 12:47:00 Ester Prominences Protected 12:47:02 A # 20 IV was noted in the Antecubital (left). Grade = 0 12:47:09 History and physical on the chart or being dictated. 12:56:02 Table restraints applied according to hospital policy 12:56:06 Disposable Defibrillator Pads Placed On Patient. 12:56:07 Bovie ground pad applied to:left hip 12:56:14 Anesthesia at bedside. Assumes care of patient. 12:56:15 2% CHLORHEXIDINE GLUCONATE WASH AND NASAL SWIPE DONE PRIOR TO PROCEDURE. 12:56:15 Pre-procedure assessment data was performed with the previous procedure. 13:00:[address] Josue's RN Nicole notified of PLT and INR results of 96 and 1.4 respectively. Nicole to notif y Dr Josue. Dr Josue 13:06:54 to contact EP Lab. 13:09:39 Left Upper Chest Prepped Times Two. IV Solutions given pre op by Anesthesia, DRESS DRAPER in Left Antecubital via Peripheral IV. Pump/Drip Flow = 20 ml/hr using 13:10:41 NaCl .9. 13:11:08 2 g ANCEF given in lab by Anesthesia, DRESS DRAPER via Peripheral IV. 13:11:15 1 g VANCOMYCIN DRIP given in lab by Anesthesia, DRESS DRAPER via Peripheral IV. First Sponge And Instrument Count Done by Nissa Portillo, CHRISTOPHER. 13:12:11 Hypo's: 2, Sponges: 25, Bovie/scratch: 1 Sutures: 5, Blades: 2, Instruments: 24, Syveck Patches: 0 13:14:33 MD paged 13:23:21 MD arrived. Time Out. Correct patient, procedure, procedure equipment, site and side verified with physicia n present. Time 13:29:53 concurred by MD, individual staff and DRESS DRAPER. Time Out #2 - Consents verified, patient in correct position, all results are labled and displa yed, safety precautions 13:29:54 taken, antibiotics administered. Time out concurred by MD, individual staff and DRESS DRAPER in procedu re 13:30:55 Case Start 13:31:46 50 mL 2% XYLOCAINE given in lab by John Josue via Subcutaneous. 13:33:02 Surgical Incision Made. 13:33:05 A pocket was created at the L Upper Chest. 13:34:59 A device was explanted. 13:38:57 A PACEMAKER, ASSURITY DR ALTAMIRANO DDDR was connected and placed in the pocket. 13:39:10 Implant Procedure was performed. 13:39:12 A PPM Removal . (Dual) 13:39:20 A PPM Implant . (Dual) Second Sponge And Instrument Count Done by Nissa Portillo RN. 13:39:33 Hypo's: 2, Sponges: 25, Bovie/scratch: 1 Sutures: ~SUTURE~, Blades: 2, Instruments: ~INSTRU~, Syveck Patches: 0 one suture added for a t otal of 6 13:42:13 Pocket flushed with antibiotic solution 13:44:09 The pocket was closed. The Final Sponge And Instrument Count Done by Nissa Portillo RN. 14:05:26 Hypo's: 2, Sponges: 25, Bovie/scratch: 1 Sutures: 6, Blades: 2, Instruments: 25, Syveck Patches: 0 14:09:21 Steri-strips and a sterile dressing applied to site. 14:09:52 Case End 14:10:09 No case complications noted. 14:10:10 Cine recording checked. 14:10:32 DOCU called. Spoke to Daysi WHITE 14:11:05 Defibrillator and ground pads removed. Skin intact. 14:11:09 Bedside Report will be given. Assessment: Final Case, HR=80 BPM, Rhythm=paced, DFZN=994/82 mmhg, Chest Pain=0, Edema=None, Color=Normal, Skin = Warm, Dry 14:11:26 Neurological: State=Alert, Ox3, SERRANO Respiration: Resp=18 B/min, SpO2=99 % 14:20:10 [facility] - Contrast Media Used In Study Contrast Total Opened (mL) Total Used (mL) Total Wasted (mL) Unspecified 0 0 0 End Study - Radiation Exposure Fluoro Time (minutes) 0.0 End Study - Patient Disposition Complications Transferred To No Outpatient Bed
[2017-01-14] MEDS ORDERED: DO NOT ADM ANY ANTICOAGULANT DRUGS PRN (14:45)
[2017-01-14] MEDS ORDERED: methylPREDNISolone SOD SUCC 125 MG/2 ML VIAL ONE (14:51)
[2017-01-14] MEDS ORDERED: diphenhydrAMINE HCL 50 MG/ML VIAL ONE (14:51)
--- NOTE | 2017-01-14 15:59 | MP ---
cc: SB YOST,JOHN BERMUDEZ, DATE OF SURGERY 01/14/2017 PROCEDURE Pulse generator change out. INDICATION Pulse generator at JANINE, underlying rhythm, complete heart block. CONSENT Full informed consent was obtained prior to the procedure. The risks of , bleeding perforation, aspiration, pneumothorax, foreseen and unforeseen complications were reviewed. The patient fully appeared to understand the risks. PROCEDURE DETAILS The patient was prepped and draped in the usual manner. The left infraclavicular area was carefully infiltrated with lidocaine. Using blunt and sharp dissection the pulse generator pocket was opened. Using a plasma knife the old pulse generator was delivered. The pacemaker pocket was debrided and the pacemaker capsule which was quite thick was incised and part of it removed. The pulse generator leads were then connected to the new pulse generator, set screws were tightened but not over tightened and the pulse generator was placed in the pocket. Pocket was flushed with vancomycin solution prior and after this. The pocket was then closed in three layers. CONCLUSION Successful replacement of dual-chamber [facility] medical pulse generator. PLAN We will plan to discharge the patient later today. Follow up in my office in approximately 1-2 weeks time. John Josue MD, FRCP,[facility] HAJ/KK /2:10 PM /3:34 PM
--- NOTE | 2017-01-15 13:01 | EKG ---
Date Performed: 01/14/2017 Time Performed: 11:36:16 PTAGE: 71 years EKG: Sinus rhythm with 1st degree A-V block. Left axis deviation Left bundle branch block LATERAL INFARCT - POSSIB LY ACUTE Possible inferior infarct - age undetermined Anteroseptal ST changes suggest myocardial injury/ischemia Abnormal ECG PREVIOUS TRACING : 12/07/2016 02.33 DOCTOR: Ed Fuller Interpretating Date/Time 01/15/2017 12:53:27
== END 2017-01-14 17:20 | disposition home or self-care (01) ==
LOC: HDIC 10:50 → HDOC 10:50
PROVIDERS: ATTEND Internal Medicine Cardiovascular Disease
DX: Z45.010 Encounter for checking and testing of cardiac pacemaker pulse generator [battery] (principal); I49.5 Sick sinus syndrome; I44.7 Left bundle-branch block, unspecified; I77.9 Disorder of arteries and arterioles, unspecified; E78.5 Hyperlipidemia, unspecified; I42.2 Other hypertrophic cardiomyopathy; I10 Essential (primary) hypertension; Z79.01 Long term (current) use of anticoagulants; Z79.82 Long term (current) use of aspirin
CPT/HCPCS: 00400; 33228; 80048; 85025; 85610; 85730; 93005; C1785; J1200; J2250; J2930; J3010; J3370; J3480; J7050